=== PATIENT | male | born 1945 | race American Indian/Alaskan Native ===

== ENCOUNTER 2021-04-12 13:02 | Inpatient (IN) | payer MEDICARE ==
--- NOTE | 2021-04-12 13:23 | Emergency Department Report ---
ED Chest Pain HPI - General Chief Complaint: Chest Pain Stated Complaint: CHEST PAIN Time Seen by Provider: 04/12/21 13:05 Source: patient Mode of arrival: Ambulatory Limitations: No Limitations - History of Present Illness Initial Comments: 75-year-old male with a past medical history of type 2 diabetes, hypertension, atrial fibrillation currently on Coumadin, CVA with residual left-sided weakness, and previous admission for upper GI bleed secondary to severe esophagitis presents to the hospital complaints of chest pain since last night. Patient states he has chest pain with lying flat and supine diffuse aching and improved with sitting upright. Patient had one episode of vomiting without persistent nausea. Patient complains of shortness of breath when supine with increased blood phlegm production and cough. He denies fever, loss of sense of taste or smell, or diaphoresis. He is immunized for Covid. Pain currently was 6/10 intensity. Patient received aspirin via EMS prior to arrival. Pt denies hematemesis, hematochezia, and melena. Currently pain free. Room air saturation 99% Severity scale (0 -10): 2 - Related Data Home Medications Medication Instructions Recorded Confirmed Last Taken Doxazosin Mesylate [Cardura] 2 mg PO BID 07/26/13 07/14/18 01/14/17 Previous Rx's Medication Instructions Recorded Last Taken Type lisinopriL [Zestril TAB] 20 mg PO QDAY #30 tablet 10/26/13 01/14/17 Rx Famotidine [Pepcid] 20 mg PO BID #60 tablet 09/22/15 01/14/17 Rx Insulin NPH, Human [NovoLIN N] 12 unit SUB-Q BIDDIAB #30 units 01/08/17 01/14/17 Rx Warfarin [Coumadin] 7.5 mg PO DAILY@1700 #30 tablet 01/08/17 01/14/17 Rx bisacodyL [Dulcolax suppos] 10 mg [place] QDAY PRN #30 supp.rect 01/08/17 Unknown Rx AtorvaSTATin [Lipitor] 40 mg PO QHS #30 tablet 01/18/17 Unknown Rx carvediloL [Coreg] 3.125 mg PO BID #60 tablet 01/18/17 Unknown Rx Clopidogrel [Plavix] 75 mg PO QDAY #30 tablet 07/17/18 Unknown Rx HYDROcodone/APAP 5-325 [[place] 1 each PO BID PRN #10 tablet 07/17/18 Unknown Rx 5-325 mg TAB] levoFLOXacin [Levaquin TAB] 500 mg PO QDAY #3 tablet 07/17/18 Unknown Rx Allergies Allergy/AdvReac Type Severity Reaction Status Date / Time No Known Allergies Allergy Verified 07/26/13 23:31 Heart Score - HEART Score History: Slightly suspicious EKG: Non-specific Age: > 65 Risk factors: > 3 risk factors or hx of atherosclerotic disease Troponin: < normal limit HEART Score: 5 - EKG Read Time Time EKG Completed: 13:05 EKG Read Time: 13:05 (no stemi) ED Review of Systems ROS: Stated complaint: CHEST PAIN Other details as noted in HPI Comment: All other systems reviewed and negative ED Past Medical Hx - Past Medical History Hx Hypertension: Yes Hx CVA: Yes (residual left-sided weakness, 2006) Hx Diabetes: Yes Hx Arthritis: Yes (GOUT) Hx HIV: No Additional medical history: AFIB - Surgical History Hx Pacemaker: Yes Hx Internal Defibrillator: Yes Additional Surgical History: pacemaker - Social History Smoking Status: Never Smoker Substance Use Type: None - Medications Home Medications: Home Medications Medication Instructions Recorded Confirmed Last Taken Type Doxazosin Mesylate [Cardura] 2 mg PO BID 07/26/13 07/14/18 01/14/17 History lisinopriL [Zestril TAB] 20 mg PO QDAY #30 tablet 10/26/13 07/14/18 01/14/17 Rx Famotidine [Pepcid] 20 mg PO BID #60 tablet 09/22/15 07/14/18 01/14/17 Rx Insulin NPH, Human [NovoLIN N] 12 unit SUB-Q BIDDIAB #30 units 01/08/17 07/14/18 01/14/17 Rx Warfarin [Coumadin] 7.5 mg PO DAILY@1700 #30 tablet 01/08/17 07/14/18 01/14/17 Rx bisacodyL [Dulcolax suppos] 10 mg [place] QDAY PRN #30 supp.rect 01/08/17 07/14/18 Unknown Rx AtorvaSTATin [Lipitor] 40 mg PO QHS #30 tablet 01/18/17 07/14/18 Unknown Rx carvediloL [Coreg] 3.125 mg PO BID #60 tablet 01/18/17 07/14/18 Unknown Rx Clopidogrel [Plavix] 75 mg PO QDAY #30 tablet 07/17/18 07/14/18 Unknown Rx HYDROcodone/APAP 5-325 [[place] 1 each PO BID PRN #10 tablet 07/17/18 Unknown Rx 5-325 mg TAB] levoFLOXacin [Levaquin TAB] 500 mg PO QDAY #3 tablet 07/17/18 Unknown Rx ED Physical Exam - General Limitations: No Limitations - Other Other exam information: General: No acute distress Head: Atraumatic Eyes: normal appearance ENT: Moist mucous membranes Neck: Normal appearance, no midline tenderness Chest: Clear to auscultation bilaterally CV: Regular rate and rhythm Abdomen: Soft, normal bowel sounds, nontender, nondistended, no rebound or guarding Rectal: Guaiac positive light brown stool without gross blood Back: Normal inspection Extremity: Normal inspection, full range of motion Neuro: Alert O x 3, left-sided facial droop, left-sided weakness compared to right. Speech clear Psych: Appropriate behavior Skin: No rash ED Course Vital Signs 04/12/21 04/12/21 04/12/21 13:02 13:48 13:56 Temperature 98 F 98.8 F Pulse Rate 89 78 Respiratory 20 19 Rate Blood Pressure 146/87 175/85 [Right] O2 Sat by Pulse 98 99 98 Oximetry 04/12/21 04/12/21 04/12/21 14:05 14:08 14:15 Temperature Pulse Rate 80 58 L 64 Respiratory 21 20 22 Rate Blood Pressure 175/80 [Right] O2 Sat by Pulse 100 98 100 Oximetry 04/12/21 14:31 Temperature Pulse Rate 61 Respiratory 21 Rate Blood Pressure [Right] O2 Sat by Pulse 100 Oximetry - Reevaluation(s) Reevaluation #1: 04/12/21 15:29 pt is currently pain free. - Consultations Consultation #1: 04/12/21 15:[address] Saida pabon. States has not been seen in the offi ce since 2017. Will consult MANNY score - Manny Score Age > 65: (1) Yes Aspirin use within the Past 7 Days: (0) No 3 or more CAD Risk Factors: (1) Yes 2 or more Angina events in past 24 hrs: (0) No Known CAD with more than 50% Stenosis: (0) No Elevated Cardiac Markers: (0) No ST Deviation Greater than 0.5mm: (0) No MANNY Score: 2 ED Medical Decision Making - Lab Data Result diagrams: 04/12/21 13:58 04/12/21 13:58 Lab Results 04/12/21 04/12/21 04/12/21 Range/Units 13:58 13:58 13:58 WBC 6.8 (4.5-11.0) K/mm3 RBC 3.68 (3.65-5.03) M/mm3 Hgb 7.7 L (11.8-15.2) gm/dl Hct 24.9 L (35.5-45.6) % MCV 68 L (84-94) fl MCH 21 L (28-32) pg MCHC 31 L (32-34) % RDW 21.2 H (13.2-15.2) % Plt Count 286 (140-440) K/mm3 Lymph % (Auto) 6.8 L (13.4-35.0) % [place] % (Auto) 7.2 (0.0-7.3) % Eos % (Auto) 0.4 (0.0-4.3) % Baso % (Auto) 2.0 H (0.0-1.8) % Lymph # (Auto) 0.5 L (1.2-5.4) K/mm3 [place] # (Auto) 0.5 (0.0-0.8) K/mm3 Eos # (Auto) 0.0 (0.0-0.4) K/mm3 Baso # (Auto) 0.1 (0.0-0.1) K/mm3 Seg Neutrophils % 83.6 H (40.0-70.0) % Seg Neutrophils # 5.7 (1.8-7.7) K/mm3 PT 37.2 H (12.2-14.9) Sec. INR 3.74 H (0.87-1.13) APTT 39.6 H (24.2-36.6) Sec. Sodium 137 (137-145) mmol/L Potassium 4.5 (3.6-5.0) mmol/L Chloride 105.8 (98-107) mmol/L Carbon Dioxide 19 L (22-30) mmol/L Anion Gap 17 mmol/L BUN 25 H (9-20) mg/dL Creatinine 1.0 (0.8-1.3) mg/dL Estimated GFR > 60 ml/min BUN/Creatinine Ratio 25 % Glucose 172 H (75-100) mg/dL Calcium 8.4 (8.4-10.2) mg/dL Total Bilirubin < 0.20 (0.1-1.2) mg/dL AST 10 (5-40) units/L ALT 6 L (7-56) units/L Alkaline Phosphatase 65 (35-129) units/L Troponin T < 0.010 (0.00-0.029) ng/mL Total Protein 6.7 (6.3-8.2) g/dL Albumin 3.3 L (3.9-5) g/dL Albumin/Globulin Ratio 1.0 % Lipase 31 (13-60) units/L - EKG Data -: EKG Interpreted by Me (Atrial fibrillation) EKG shows normal: ST-T waves (Inferior lateral T wave inversions) Rate: normal (65) - EKG Data When compared to previous EKG there are: changes noted (previous ekg were paced. ) 04/12/21 15:34 Patient has a demand pacemaker with underlying rhythm of atrial fibrillation. Today's EKG shows atrial fibrillation with inferior lateral T wave inversions which is similar to July 26, 2013. Other EKGs on record show a ventricular paced rhythm. Therefore, there were no acute changes - Radiology Data Radiology results: report reviewed CHEST 1 VIEW INDICATION / CLINICAL INFORMATION: chest pain. COMPARISON: 07/12/2018 FINDINGS: SUPPORT DEVICES: Single lead pacemaker is stable in position. HEART / MEDIASTINUM: No significant abnormality. LUNGS / PLEURA: No significant pulmonary or pleural abnormality. No pneumothorax. ADDITIONAL FINDINGS: No significant additional findings. IMPRESSION: 1. No acute findings. No interval change - Medical Decision Making 75-year-old male with several cardiac risk factors presents to the hospital complaining of chest pain. Chest pain appears to be positional without significant associated symptoms. No acute EKG changes. Initial troponin negative. Chest pain-free in the ED. Supratherapeutic INR noted. Microcytic anemia noted with guaiac positive brown nonbloody stools. Patient denies vomiting blood with one episode of emesis overnight. Case discussed with compliance review officer Dr. Cintron and consult ordered. Patient to be admitted to hospital service for further treatment. Critical Care Time: No Critical care attestation.: If time is entered above; I have spent that time in minutes in the direct care of this critically ill patient, excluding procedure time. ED Disposition Clinical Impression: Chest pain, Warfarin anticoagulation, Atrial fibrillation and flutter, Guaiac positive stools, Microcytic anemia, History of CVA with residual deficit Disposition: ADMITTED INPATIENT Is pt being admited?: Yes Condition: Stable Time of Disposition: 15:39
[2021-04-12 14:12] LABS: Basophils # (Auto) 0.1 K/mm3 (0.0-0.1); Eosinophils % (Auto) 0.4 % (0.0-4.3); Hematocrit 24.9 % (35.5-45.6); Hemoglobin 7.7 gm/dl (11.8-15.2); Lymphocytes # (Auto) 0.5 K/mm3 (1.2-5.4); Lymphocytes % (Auto) 6.8 % (13.4-35.0); Mean Corpuscular HGB Conc 31 % (32-34); Monocytes # (Auto) 0.5 K/mm3 (0.0-0.8); Monocytes % (Auto) 7.2 % (0.0-7.3); Platelet Count 286 K/mm3 (140-440); Red Blood Count 3.68 M/mm3 (3.65-5.03)
[2021-04-12 14:13] LABS: Mean Corpuscular Volume 68 fl (84-94); Red Cell Distribution Width 21.2 % (13.2-15.2)
[2021-04-12 14:21] LABS: INR 3.74 (0.87-1.13)
[2021-04-12 14:22] LABS: Partial Thromboplastin Time 39.6 Sec. (24.2-36.6)
--- NOTE | 2021-04-12 14:22 | XRay Report ---
CHEST 1 VIEW INDICATION / CLINICAL INFORMATION: chest pain. COMPARISON: 07/12/2018 FINDINGS: SUPPORT DEVICES: Single lead pacemaker is stable in position. HEART / MEDIASTINUM: No significant abnormality. LUNGS / PLEURA: No significant pulmonary or pleural abnormality. No pneumothorax. ADDITIONAL FINDINGS: No significant additional findings. IMPRESSION: 1. No acute findings. No interval change. Signer Name: Muna Carpenter MD Signed: 04/12/2021 2:18 PM Workstation Name: [id number]
[2021-04-12 15:21] LABS: Alanine Aminotransferase 6 units/L (7-56); Albumin 3.3 g/dL (3.9-5); BUN/Creatinine Ratio 25; Blood Urea Nitrogen 25 mg/dL (9-20); Calcium 8.4 mg/dL (8.4-10.2); Hemolysis Index 1
--- NOTE | 2021-04-12 23:43 | History and Physical Report ---
History of Present Illness Date of examination: 04/12/21 Date of admission: 04/12/21 15:43 Chief complaint: Chest pain since a.m. History of present illness: 75-year-old male with a past medical history of type 2 diabetes, hypertension, atrial fibrillation currently on Coumadin, CVA with residual left-sided weakness, and previous admission for upper GI bleed secondary to severe esophagitis presents to the hospital complaints of chest pain since last night. Patient states he has chest pain with lying flat and supine diffuse aching and improved with sitting upright. Patient had one episode of vomiting without persistent nausea. Patient complains of shortness of breath when supine with increased blood phlegm production and cough. He denies fever, loss of sense of taste or smell, or diaphoresis. He is immunized for Covid. Pain currently was 6/10 intensity. Patient received aspirin via EMS prior to arrival. Pt denies hematemesis, hematochezia, and melena. Currently pain free. Heart Score - HEART Score History: Slightly suspicious EKG: Non-specific Age: > 65 Risk factors: > 3 risk factors or hx of atherosclerotic disease Troponin: < normal limit HEART Score: 5 - EKG Read Time Time EKG Completed: 13:05 EKG Read Time: 13:05 (no stemi) - Past Medical History --Hypertension: Yes --CVA: Yes (residual left-sided weakness, 2006) --Diabetes: Yes --Arthritis: Yes (GOUT) --Additional medical history: AFIB - Surgical History --Pacemaker: Yes --Internal Defibrillator: Yes --Additional Surgical History: pacemaker - Social History Smoking Status: Never Smoker Substance Use Type: None - Medications Home Medications: Home Medications Medication Instructions Recorded Confirmed Last Taken Type Doxazosin Mesylate [Cardura] 2 mg PO BID 07/26/13 07/14/18 01/14/17 History lisinopriL [Zestril TAB] 20 mg PO QDAY #30 tablet 10/26/13 07/14/18 01/14/17 Rx Famotidine [Pepcid] 20 mg PO BID #60 tablet 09/22/15 07/14/18 01/14/17 Rx Insulin NPH, Human [NovoLIN N] 12 unit SUB-Q BIDDIAB #30 units 01/08/17 07/14/18 01/14/17 Rx Warfarin [Coumadin] 7.5 mg PO DAILY@1700 #30 tablet 01/08/17 07/14/18 01/14/17 Rx bisacodyL [Dulcolax suppos] 10 mg [place] QDAY PRN #30 supp.rect 01/08/17 07/14/18 Unknown Rx AtorvaSTATin [Lipitor] 40 mg PO QHS #30 tablet 01/18/17 07/14/18 Unknown Rx carvediloL [Coreg] 3.125 mg PO BID #60 tablet 01/18/17 07/14/18 Unknown Rx Clopidogrel [Plavix] 75 mg PO QDAY #30 tablet 07/17/18 07/14/18 Unknown Rx HYDROcodone/APAP 5-325 [[place] 1 each PO BID PRN #10 tablet 07/17/18 Unknown Rx 5-325 mg TAB] levoFLOXacin [Levaquin TAB] 500 mg PO QDAY #3 tablet 07/17/18 Unknown Rx Review of Systems ROS: Stated complaint: CHEST PAIN Other details as noted in HPI Comment: All other systems reviewed and negative Medications and Allergies Allergies Allergy/AdvReac Type Severity Reaction Status Date / Time No Known Allergies Allergy Verified 07/26/13 23:31 Home Medications Medication Instructions Recorded Confirmed Last Taken Type Doxazosin Mesylate [Cardura] 2 mg PO BID 07/26/13 07/14/18 01/14/17 History lisinopriL [Zestril TAB] 20 mg PO QDAY #30 tablet 10/26/13 07/14/18 01/14/17 Rx Famotidine [Pepcid] 20 mg PO BID #60 tablet 09/22/15 07/14/18 01/14/17 Rx Insulin NPH, Human [NovoLIN N] 12 unit SUB-Q BIDDIAB #30 units 01/08/17 07/14/18 01/14/17 Rx Warfarin [Coumadin] 7.5 mg PO DAILY@1700 #30 tablet 01/08/17 07/14/18 01/14/17 Rx bisacodyL [Dulcolax suppos] 10 mg [place] QDAY PRN #30 supp.rect 01/08/17 07/14/18 Unknown Rx AtorvaSTATin [Lipitor] 40 mg PO QHS #30 tablet 01/18/17 07/14/18 Unknown Rx carvediloL [Coreg] 3.125 mg PO BID #60 tablet 01/18/17 07/14/18 Unknown Rx Clopidogrel [Plavix] 75 mg PO QDAY #30 tablet 07/17/18 07/14/18 Unknown Rx HYDROcodone/APAP 5-325 [[place] 1 each PO BID PRN #10 tablet 07/17/18 Unknown Rx 5-325 mg TAB] levoFLOXacin [Levaquin TAB] 500 mg PO QDAY #3 tablet 07/17/18 Unknown Rx Exam - Constitutional Vitals: Temp Pulse Resp BP Pulse Ox 98.8 F 61 19 176/80 97 04/12/21 13:48 04/12/21 23:31 04/12/21 23:31 04/12/21 23:31 04/12/21 23:31 General appearance: Present: no acute distress, well-nourished - EENT Eyes: Present: PERRL ENT: hearing intact, clear oral mucosa - Neck Neck: Present: supple, normal ROM - Respiratory Respiratory effort: normal Respiratory: bilateral: CTA - Cardiovascular Heart rate: 78 Rhythm: irregularly irregular Heart Sounds: Present: S1 & S2. Absent: rub, click - Extremities Extremities: pulses symmetrical, No edema Peripheral Pulses: within normal limits - Abdominal General gastrointestinal: Present: soft, non-tender, non-distended, normal bowel sounds Male genitourinary: Present: normal - Rectal Rectal Exam: stool brown (OB positive) - Integumentary Integumentary: Present: clear, warm, dry - Musculoskeletal Musculoskeletal: gait normal, strength equal bilaterally - Psychiatric Psychiatric: appropriate mood/affect, intact judgment & insight - Neurologic Neurologic: CNII-XII intact, moves all extremities - Allied Health Allied health notes reviewed: nursing, case management HEART Score - HEART Score History: Moderately suspicious EKG: Non-specific Age: > 65 Risk factors: > 3 risk factors or hx of atherosclerotic disease Troponin: Troponin T < 0.010 ng/mL (0.00-0.029) 04/12/21 19:31 Troponin: < normal limit HEART Score: 6 - Critical Actions Critical Actions: 4-6 pts:12-16.6% risk of adverse cardiac event. Should be admitted Results - Labs CBC & Chem 7: 04/13/21 04:58 04/13/21 04:58 Labs: Laboratory Last Values WBC 6.8 K/mm3 (4.5-11.0) 04/12/21 13:58 RBC 3.68 M/mm3 (3.65-5.03) 04/12/21 13:58 Hgb 7.7 gm/dl (11.8-15.2) L 04/12/21 13:58 Hct 24.9 % (35.5-45.6) L 04/12/21 13:58 MCV 68 fl (84-94) L 04/12/21 13:58 MCH 21 pg (28-32) L 04/12/21 13:58 MCHC 31 % (32-34) L 04/12/21 13:58 RDW 21.2 % (13.2-15.2) H 04/12/21 13:58 Plt Count 286 K/mm3 (140-440) 04/12/21 13:58 Lymph % (Auto) 6.8 % (13.4-35.0) L 04/12/21 13:58 [place] % (Auto) 7.2 % (0.0-7.3) 04/12/21 13:58 Eos % (Auto) 0.4 % (0.0-4.3) 04/12/21 13:58 Baso % (Auto) 2.0 % (0.0-1.8) H 04/12/21 13:58 Lymph # (Auto) 0.5 K/mm3 (1.2-5.4) L 04/12/21 13:58 [place] # (Auto) 0.5 K/mm3 (0.0-0.8) 04/12/21 13:58 Eos # (Auto) 0.0 K/mm3 (0.0-0.4) 04/12/21 13:58 Baso # (Auto) 0.1 K/mm3 (0.0-0.1) 04/12/21 13:58 Seg Neutrophils % 83.6 % (40.0-70.0) H 04/12/21 13:58 Seg Neutrophils # 5.7 K/mm3 (1.8-7.7) 04/12/21 13:58 PT 37.2 Sec. (12.2-14.9) H 04/12/21 13:58 INR 3.74 (0.87-1.13) H 04/12/21 13:58 APTT 39.6 Sec. (24.2-36.6) H 04/12/21 13:58 Sodium 137 mmol/L (137-145) 04/12/21 13:58 Potassium 4.5 mmol/L (3.6-5.0) 04/12/21 13:58 Chloride 105.8 mmol/L (98-107) 04/12/21 13:58 Carbon Dioxide 19 mmol/L (22-30) L 04/12/21 13:58 Anion Gap 17 mmol/L 04/12/21 13:58 BUN 25 mg/dL (9-20) H 04/12/21 13:58 Creatinine 1.0 mg/dL (0.8-1.3) 04/12/21 13:58 Estimated GFR > 60 ml/min 04/12/21 13:58 BUN/Creatinine Ratio 25 % 04/12/21 13:58 Glucose 172 mg/dL (75-100) H 04/12/21 13:58 Calcium 8.4 mg/dL (8.4-10.2) 04/12/21 13:58 Total Bilirubin < 0.20 mg/dL (0.1-1.2) 04/12/21 13:58 AST 10 units/L (5-40) 04/12/21 13:58 ALT 6 units/L (7-56) L 04/12/21 13:58 Alkaline Phosphatase 65 units/L (35-129) 04/12/21 13:58 Troponin T < 0.010 ng/mL (0.00-0.029) 04/12/21 19:31 Total Protein 6.7 g/dL (6.3-8.2) 04/12/21 13:58 Albumin 3.3 g/dL (3.9-5) L 04/12/21 13:58 Albumin/Globulin Ratio 1.0 % 04/12/21 13:58 Lipase 31 units/L (13-60) 04/12/21 13:58 - Imaging and Cardiology EKG: report reviewed (Sinus rhythm no acute ST-T wave changes) Assessment and Plan Advance Directives: Yes Plan of care discussed with patient/family: Yes - Patient Problems (1) Acute coronary syndrome Current Visit: Yes Status: Acute Plan to address problem: Chest pain work-up Lexiscan in the morning (2) A-fib Current Visit: Yes Status: Chronic Qualifiers: Atrial fibrillation type: persistent (not longstanding) Qualified Code(s): I48.19 - Other persistent atrial fibrillation; I48.1 - Persistent atrial fibrillation Plan to address problem: On Coumadin which was stopped because of the INR being more than 3 Also guaiac positive stools Patient on clear liquids (3) Guaiac positive stools Current Visit: Yes Status: Acute Plan to address problem: GI consult (4) History of CVA with residual deficit Current Visit: Yes Status: Chronic Plan to address problem: Supportive care (5) Coagulopathy Current Visit: Yes Status: Acute Plan to address problem: Coumadin and Plavix stopped GI consult for possible EGD/colonoscopy (6) Anemia Current Visit: Yes Status: Chronic Qualifiers: Anemia type: unspecified type Qualified Code(s): D64.9 - Anemia, unspecified Plan to address problem: Transfuse as necessary Possible slow blood loss secondary to coagulopathy (7) Cardiac pacemaker in situ Current Visit: No Status: Chronic Plan to address problem: Pacemaker functioning well (8) HTN (hypertension) Current Visit: No Status: Chronic Plan to address problem: Continue antihypertensives and adjust medications (9) DVT prophylaxis Current Visit: Yes Status: Acute Plan to address problem: Patient is anticoagulated, no need for heparin Patient on IV Protonix (10) T2DM (type 2 diabetes mellitus) Current Visit: Yes Status: Chronic Qualifiers: Diabetes mellitus terminal worker insulin use: unspecified terminal worker insulin use status Plan to address problem: coverage for now
[2021-04-12] MEDS ORDERED: FAMOTIDINE 20 MG/2 ML INJ IV SCH (23:45)
[2021-04-12] MEDS ORDERED: ONDANSETRON 4 MG/2 ML INJ IV PRN (23:46)
[2021-04-12] MEDS ORDERED: ACETAMINOPHEN 325 MG TAB PO PRN (23:46)
[2021-04-12] MEDS ORDERED: MORPHINE 2 MG/1 ML INJ IV PRN (23:46)
[2021-04-12] MEDS ORDERED: METOCLOPRAMIDE 10 MG/2 ML INJ IV PRN (23:46)
[2021-04-12] MEDS ORDERED: HYDROmorphone 1 MG/1 ML INJ IV PRN (23:46)
[2021-04-13] MEDS: PANTOPRAZOLE 40 MG INJ IV SCH ×2 (00:54→20:24)
[2021-04-13 01:00] LABS: Hematocrit 24.9 % (35.5-45.6); Hemoglobin 7.7 gm/dl (11.8-15.2)
[2021-04-13 06:22] LABS: INR 3.75 (0.87-1.13)
[2021-04-13 06:23] LABS: Partial Thromboplastin Time 43.4 Sec. (24.2-36.6)
[2021-04-13 06:35] LABS: Basophils # (Auto) 0.1 K/mm3 (0.0-0.1); Basophils % (Auto) 0.8 % (0.0-1.8); Eosinophils # (Auto) 0.1 K/mm3 (0.0-0.4); Eosinophils % (Auto) 1.9 % (0.0-4.3); Hematocrit 24.5 % (35.5-45.6); Hemoglobin 7.8 gm/dl (11.8-15.2); Lymphocytes # (Auto) 1.6 K/mm3 (1.2-5.4); Lymphocytes % (Auto) 25.6 % (13.4-35.0); Mean Corpuscular HGB Conc 32 % (32-34); Monocytes # (Auto) 0.6 K/mm3 (0.0-0.8); Monocytes % (Auto) 9.4 % (0.0-7.3); Platelet Count 256 K/mm3 (140-440); Red Blood Count 3.61 M/mm3 (3.65-5.03)
[2021-04-13 06:41] LABS: Mean Corpuscular Volume 68 fl (84-94); Red Cell Distribution Width 21.3 % (13.2-15.2)
[2021-04-13 06:43] LABS: Alanine Aminotransferase 6 units/L (7-56); Albumin 3.1 g/dL (3.9-5); BUN/Creatinine Ratio 19; Blood Urea Nitrogen 19 mg/dL (9-20); Calcium 8.4 mg/dL (8.4-10.2); Hemolysis Index 0
[2021-04-13] MEDS: INSULIN NPH, HUMAN 100 UNIT/1 ML SUB-Q SCH ×2 (08:17→19:02)
--- NOTE | 2021-04-13 08:48 | Electrocardiograph Report ---
[facility] Test Date: 2021-04-12 Test Time: 13:05:40 Pat Name: VIANNEY ATKINSON SR Department: Room: A483 1 Gender: M Studio Director: ED NURSE : 1945 Requested By: ANDREY PARIS Order Number: [id number] Reading MD: Leon Crockett Measurements Intervals [place] Rate: 65 P: [place]: QRS: -6 QRSD: 92 T: 269 QT: 406 QTc: 422 Interpretive Statements Atrial fibrillation baseline artifact repeat ekg Inferior infarct, age indeterminate Abnrm T, probable ischemia, anterolateral lds No previous ECG available for comparison Electronically Signed On 04-13-2021 8:48:24 EDT by Leon Crockett
--- NOTE | 2021-04-13 08:51 | Electrocardiograph Report ---
[facility] Test Date: 2021-04-13 Test Time: 07:15:32 Pat Name: VIANNEY ATKINSON SR Department: Room: A483 1 Gender: M Integration Aide: AMANDA : 1945 Requested By: ANDREY PARIS Order Number: [id number] Reading MD: Leon Crockett Measurements Intervals [place] Rate: 77 P: [place]: QRS: -19 QRSD: 94 T: -89 QT: 434 QTc: 491 Interpretive Statements Atrial fibrillation Probable anterior infarct, age indeterminate Abnormal T, probable ischemia, widespread Lateral wall also involved Compared to ECG 04/12/2021 13:05:40 T-wave abnormality now present Myocardial infarct finding still present Possible ischemia still present Electronically Signed On 04-13-2021 8:51:05 EDT by Leon Crockett
[2021-04-13] MEDS ORDERED: REGADENOSON 0.4 MG/5 ML INJ IV ONE (09:47)
[2021-04-13] MEDS ORDERED: NON-FORMULARY EACH (Doxazosin Mesylate [Cardura] 2 MG Tablet) PO SCH (10:00)
[2021-04-13] MEDS ORDERED: carvediloL 3.125 MG TAB PO SCH (10:00)
[2021-04-13] MEDS ORDERED: FAMOTIDINE 20 MG TAB PO SCH (10:00)
--- NOTE | 2021-04-13 12:07 | Progress Note ---
Assessment and Plan Assessment and plan: -- Acute coronary syndrome Current Visit: Yes Status: Acute Chest pain work-up Patient had stress test Pending report -- A-fib Current Visit: Yes Status: Chronic On Coumadin which was stopped because of the INR being more than 3 Rate controlled, continue current cardiac medications -- Guaiac positive stools Current Visit: Yes Status: Acute GI consult -- History of CVA with residual deficit Current Visit: Yes Status: Chronic Supportive care -- Coagulopathy/supratherapeutic INR Current Visit: Yes Status: Acute Coumadin and Plavix stopped GI consult for possible EGD/colonoscopy --Anemia Current Visit: Yes Status: Chronic Transfuse as necessary Possible slow blood loss secondary to coagulopathy --Cardiac pacemaker in situ Current Visit: No Status: Chronic Pacemaker functioning well --HTN (hypertension) Current Visit: No Status: Chronic Continue antihypertensives and adjust medications -- T2DM (type 2 diabetes mellitus) Current Visit: Yes Status: Chronic Accu-Chek sliding scale coverage ADA diet Insulin as needed --DVT prophylaxis Current Visit: Yes Status: Acute Coagulopathy/ Closely monitor the patient and adjust the management as needed 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 and appreciated Follow stress test report Follow-up GI and cardiology evaluation and recommendations Plan of care reviewed with the patient and her nurse History Interval history: I have seen and examined the patient at the bedside Patient's chart and medications reviewed Patient scheduled for stress test Patient feels better no new complaints Hospitalist Physical - Constitutional Vitals: Temp Pulse Resp BP Pulse Ox 98.0 F 60 18 147/70 100 04/13/21 08:24 04/13/21 08:24 04/13/21 08:24 04/13/21 10:10 04/13/21 08:24 General appearance: Present: no acute distress, well-nourished - EENT Eyes: Present: PERRL, EOM intact - Neck Neck: Present: supple, normal ROM - Respiratory Respiratory effort: normal Respiratory: bilateral: diminished, negative: rales, rhonchi, wheezing - Cardiovascular Rhythm: regular Heart Sounds: Present: S1 & S2 - Extremities Extremities: no ischemia, No edema - Abdominal General gastrointestinal: soft, non-tender, non-distended, normal bowel sounds - Integumentary Integumentary: Present: clear, warm - Psychiatric Psychiatric: appropriate mood/affect, cooperative - Neurologic Neurologic: CNII-XII intact, moves all extremities HEART Score - HEART Score EKG: Non-specific Age: > 65 Risk factors: > 3 risk factors or hx of atherosclerotic disease Troponin: Troponin T < 0.010 ng/mL (0.00-0.029) 04/12/21 19:31 Troponin: < normal limit - Critical Actions Critical Actions: 4-6 pts:12-16.6% risk of adverse cardiac event. Should be admitted Results - Labs CBC & Chem 7: 04/13/21 15:21 04/13/21 04:58 Labs: Laboratory Last Values WBC 6.1 K/mm3 (4.5-11.0) 04/13/21 04:58 RBC 3.61 M/mm3 (3.65-5.03) L 04/13/21 04:58 Hgb 7.8 gm/dl (11.8-15.2) L 04/13/21 04:58 Hct 24.5 % (35.5-45.6) L 04/13/21 04:58 MCV 68 fl (84-94) L 04/13/21 04:58 MCH 22 pg (28-32) L 04/13/21 04:58 MCHC 32 % (32-34) 04/13/21 04:58 RDW 21.3 % (13.2-15.2) H 04/13/21 04:58 Plt Count 256 K/mm3 (140-440) 04/13/21 04:58 Lymph % (Auto) 25.6 % (13.4-35.0) 04/13/21 04:58 [place] % (Auto) 9.4 % (0.0-7.3) H 04/13/21 04:58 Eos % (Auto) 1.9 % (0.0-4.3) 04/13/21 04:58 Baso % (Auto) 0.8 % (0.0-1.8) 04/13/21 04:58 Lymph # (Auto) 1.6 K/mm3 (1.2-5.4) 04/13/21 04:58 [place] # (Auto) 0.6 K/mm3 (0.0-0.8) 04/13/21 04:58 Eos # (Auto) 0.1 K/mm3 (0.0-0.4) 04/13/21 04:58 Baso # (Auto) 0.1 K/mm3 (0.0-0.1) 04/13/21 04:58 Seg Neutrophils % 62.3 % (40.0-70.0) 04/13/21 04:58 Seg Neutrophils # 3.8 K/mm3 (1.8-7.7) 04/13/21 04:58 PT 37.3 Sec. (12.2-14.9) H 04/13/21 04:58 INR 3.75 (0.87-1.13) H 04/13/21 04:58 APTT 43.4 Sec. (24.2-36.6) H 04/13/21 04:58 Sodium 146 mmol/L (137-145) H D 04/13/21 04:58 Potassium 4.3 mmol/L (3.6-5.0) 04/13/21 04:58 Chloride 112.9 mmol/L (98-107) H 04/13/21 04:58 Carbon Dioxide 22 mmol/L (22-30) 04/13/21 04:58 Anion Gap 15 mmol/L 04/13/21 04:58 BUN 19 mg/dL (9-20) 04/13/21 04:58 Creatinine 1.0 mg/dL (0.8-1.3) 04/13/21 04:58 Estimated GFR > 60 ml/min 04/13/21 04:58 BUN/Creatinine Ratio 19 % 04/13/21 04:58 Glucose 116 mg/dL (75-100) H 04/13/21 04:58 Hemoglobin A1c 5.7 % (4-6) 04/13/21 04:58 Calcium 8.4 mg/dL (8.4-10.2) 04/13/21 04:58 Total Bilirubin 0.20 mg/dL (0.1-1.2) 04/13/21 04:58 AST 9 units/L (5-40) 04/13/21 04:58 ALT 6 units/L (7-56) L 04/13/21 04:58 Alkaline Phosphatase 59 units/L (35-129) 04/13/21 04:58 Troponin T < 0.010 ng/mL (0.00-0.029) 04/12/21 19:31 Total Protein 6.3 g/dL (6.3-8.2) 04/13/21 04:58 Albumin 3.1 g/dL (3.9-5) L 04/13/21 04:58 Albumin/Globulin Ratio 1.0 % 04/13/21 04:58 Lipase 31 units/L (13-60) 04/12/21 13:58 Microbiology: Microbiology 04/12/21 15:15 Stool Stool Occult Blood (BELIA) - Final Brenner/IV: Voiding Method Urinal Active Medications - Current Medications Current Medications: Generic Name Dose Route Start Last Admin Trade Name Freq PRN Reason Stop Dose Admin Acetaminophen 650 mg 04/12/21 23:46 Acetaminophen 325 Mg Tab PO Q4H PRN Pain MILD(1-3)/Fever >100.5/RAMIREZ Atorvastatin Calcium 40 mg 04/13/21 22:00 Atorvastatin 40 Mg Tab PO QHS [facility] Carvedilol 3.125 mg 04/13/21 10:00 Carvedilol 3.125 Mg Tab PO BID [facility] Doxazosin Mesylate 2 mg 04/13/21 10:00 Doxazosin 1 Mg Tab PO BID [facility] Hydromorphone HCl 0.5 mg 04/12/21 23:46 Hydromorphone 1 Mg/1 Ml Inj IV Q3H PRN Pain , Severe (7-10) Sodium Chloride 1,000 mls @ 75 mls/hr 04/12/21 23:45 Nacl 0.9% 1000 Ml IV DIRECT [facility] Insulin Human NPH 12 unit 04/13/21 08:00 04/13/21 08:17 Insulin Nph, Human 100 Unit/1 Ml SUB-Q Not Given BIDDIAB [facility] Lisinopril 20 mg 04/13/21 10:00 Lisinopril 20 Mg Tab PO QDAY [facility] Metoclopramide HCl 10 mg 04/12/21 23:46 Metoclopramide 10 Mg/2 Ml Inj IV Q6H PRN Nausea And Vomiting Morphine Sulfate 2 mg 04/12/21 23:46 Morphine 2 Mg/1 Ml Inj IV Q4H PRN Pain, Moderate (4-6) Ondansetron HCl 4 mg 04/12/21 23:46 Ondansetron 4 Mg/2 Ml Inj IV Q8H PRN Nausea And Vomiting Pantoprazole Sodium 40 mg 04/12/21 23:45 04/13/21 00:54 Pantoprazole 40 Mg Inj IV 40 mg BID LAW Administration Sodium Chloride 10 ml 04/12/21 23:45 04/13/21 00:55 Sodium Chloride 0.9% 10 Ml Flush Syringe IV 10 ml BID LAW Administration Sodium Chloride 10 ml 04/12/21 23:46 Sodium Chloride 0.9% 10 Ml Flush Syringe IV PRN PRN LINE FLUSH
--- NOTE | 2021-04-13 13:00 | Nuclear Medicine Report ---
APPROVED REPORT Exam: Nuclear Stress Test Indication: Chest pain [facility] Ht: 5 ft 5 in Wt: 172 lbs BSA: 1.86 m2 HR: 64 bpmBP: 150/80 mmHgBMI: 28.61 Rhythm: Sinus Bradycardia Stress Test Details Stress Test: Pharmacologic stress testing performed using 0.4 mg of regadenoson per 5 mL given IV over 10 seconds. Reason for pharmacologic stress test: physical limitation. HR Resting HR: 64 bpm Max HR Achieved: 107 bpm Max Heart Rate (APMHR): 146 bpm Target HR (85% APMHR): 124 bpm % of APMHR: 73 Recovery HR: 96 bpm BP Resting BP: 150/86 mmHg Max BP: 160/87 mmHg ECG Resting ECG: Sinus Bradycardia Stress ECG: Sinus Rhythm ST Change: None Arrhythmia: None Recovery ECG: Sinus Rhythm Recovery ST Change: None Recovery Arrhythmia: None Clinical Reason for Termination: Completed protocol Stress Symptoms: None Stress ECG Conclusion No chest pain, no ST changes of ischemia with pharmacologic stress, myocardial perfusion images are pending for final test interpretation. NM EXAM: Myocardial Perfusion REST/STRESS Imaging Protocol: Rest Tc-99m/Stress Tc-99m 1 day Resting Data Rest SPECT myocardial perfusion imaging was performed in supine position 45 minutes following the intravenous injection of 10 mCi of Tc-99m Myoview. Time of rest injection: 0820 Pharmacologic Stress Pharmacologic stress test was performed by injecting Regadenoson 0.4 mg IV push followed by the intravenous injection of 28 mCi of Tc-99m Myoview. Time of stress injection: 1008 Gated Stress SPECT was performed 30 minutes after stress injection. The images were gated to evaluate regional wall motion and calculate left ventricular ejection fraction. Study Quality Study: excellent Lung Uptake: Normal Study Data TID = 0.99. Perfusion Wall Motion There is a small area of hypokinesis in the apical segment of the inferior wall which is seen on the stress images as well as the resting images. Nuclear Conclusion ECG Findings: negative for ischemia Clinical Findings: negative for ischemia Nuclear Findings: equivocal Left Ventricular Function: normal Risk Study: low Evidence of failure prior infarct in the apical segment of the inferior wall, with minimal to no significant reversibility on the resting study. Left ventricular systolic function is well-preserved, with ejection fraction calculated at 62%. Clinical correlation is recommended. Conclusion No chest pain, no ST changes of ischemia with pharmacologic stress, myocardial perfusion images are pending for final test interpretation.
[2021-04-13] MEDS: LISINOPRIL 20 MG TAB PO SCH (13:20)
[2021-04-13] MEDS: DOXAZOSIN 1 MG TAB PO SCH ×3 (13:20→22:25)
--- NOTE | 2021-04-13 13:29 | Consultation ---
History of Present Illness Consult date: 04/13/21 Consult reason: chest pain History of present illness: The patient is a 75-year-old man with multiple comorbidities, admitted with a typical chest pain. He has a history of paroxysmal atrial fibrillation, sick sinus syndrome with single-chamber cardiac pacemaker, prior CVA with a residual left hemiparesis. He is on chronic warfarin therapy, managed by his primary care physician. 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 There is no documented history of coronary artery disease or previous myocardial infarction. Serial echocardiograms, most recently in 2017 document normal left ventricular systolic ejection fraction of 55%. His current chest pain is atypical, nonexertional, poorly characterized with no associated features. He was evaluated in the emergency room and referred for admission. His ECG is a normal sinus rhythm, left ventricle hypertrophy with marked repolarization abnormalities of LVH. Chest x-ray reveals normal-sized cardiac silhouette and clear lungs. Single chamber pacemaker is in situ. Today, he underwent a Lexiscan thallium stress test, which shows a small to med ium sized wedge-shaped, fixed defect in the inferoapical wall. This defect was mostly fixed with minimal to no significant reversibility. Left ventricular systolic ejection fraction was normal on gated SPECT study. Past History Past Medical History: atrial fib, hypertension, stroke Medications and Allergies Allergies Allergy/AdvReac Type Severity Reaction Status Date / Time No Known Allergies Allergy Verified 07/26/13 23:31 Home Medications Medication Instructions Recorded Confirmed Last Taken Type Doxazosin Mesylate [Cardura] 2 mg PO BID 07/26/13 07/14/18 01/14/17 History lisinopriL [Zestril TAB] 20 mg PO QDAY #30 tablet 10/26/13 07/14/18 01/14/17 Rx Famotidine [Pepcid] 20 mg PO BID #60 tablet 09/22/15 07/14/18 01/14/17 Rx Insulin NPH, Human [NovoLIN N] 12 unit SUB-Q BIDDIAB #30 units 01/08/17 07/14/18 01/14/17 Rx Warfarin [Coumadin] 7.5 mg PO DAILY@1700 #30 tablet 01/08/17 07/14/18 01/14/17 Rx bisacodyL [Dulcolax suppos] 10 mg [place] QDAY PRN #30 supp.rect 01/08/17 07/14/18 Unknown Rx AtorvaSTATin [Lipitor] 40 mg PO QHS #30 tablet 01/18/17 07/14/18 Unknown Rx carvediloL [Coreg] 3.125 mg PO BID #60 tablet 01/18/17 07/14/18 Unknown Rx Clopidogrel [Plavix] 75 mg PO QDAY #30 tablet 07/17/18 07/14/18 Unknown Rx HYDROcodone/APAP 5-325 [[place] 1 each PO BID PRN #10 tablet 07/17/18 Unknown Rx 5-325 mg TAB] levoFLOXacin [Levaquin TAB] 500 mg PO QDAY #3 tablet 07/17/18 Unknown Rx Active Meds: Active Medications Acetaminophen (Acetaminophen 325 Mg Tab) 650 mg PO Q4H PRN PRN Reason: Pain MILD(1-3)/Fever >100.5/RAMIREZ Atorvastatin Calcium (Atorvastatin 40 Mg Tab) 40 mg PO QHS [facility] Carvedilol (Carvedilol 3.125 Mg Tab) 3.125 mg PO BID [facility] Doxazosin Mesylate (Doxazosin 1 Mg Tab) 2 mg PO BID [facility] Hydromorphone HCl (Hydromorphone 1 Mg/1 Ml Inj) 0.5 mg IV Q3H PRN PRN Reason: Pain , Severe (7-10) Sodium Chloride (Nacl 0.9% 1000 Ml) 1,000 mls @ 75 mls/hr IV DIRECT [facility] Insulin Human NPH (Insulin Nph, Human 100 Unit/1 Ml) 12 unit SUB-Q BIDDIAB [facility] Last Admin: 04/13/21 08:17 Dose: Not Given Documented by: Lisinopril (Lisinopril 20 Mg Tab) 20 mg PO QDAY [facility] Metoclopramide HCl (Metoclopramide 10 Mg/2 Ml Inj) 10 mg IV Q6H PRN PRN Reason: Nausea And Vomiting Morphine Sulfate (Morphine 2 Mg/1 Ml Inj) 2 mg IV Q4H PRN PRN Reason: Pain, Moderate (4-6) Ondansetron HCl (Ondansetron 4 Mg/2 Ml Inj) 4 mg IV Q8H PRN PRN Reason: Nausea And Vomiting Pantoprazole Sodium (Pantoprazole 40 Mg Inj) 40 mg IV BID [facility] Last Admin: 04/13/21 00:54 Dose: 40 mg Documented by: Sodium Chloride (Sodium Chloride 0.9% 10 Ml Flush Syringe) 10 ml IV BID LAW Last Admin: 04/13/21 00:55 Dose: 10 ml Documented by: Sodium Chloride (Sodium Chloride 0.9% 10 Ml Flush Syringe) 10 ml IV PRN PRN PRN Reason: LINE FLUSH Review of Systems Cardiovascular: chest pain, no orthopnea, no palpitations, no rapid/irregular heart beat, no edema, no syncope, no lightheadedness, no shortness of breath Physical Examination Vital Signs Temp Pulse Resp BP Pulse Ox 98.9 F 89 16 146/87 99 04/12/21 13:02 04/12/21 13:02 04/12/21 13:02 04/12/21 13:02 04/12/21 13:02 General appearance: no acute distress HEENT: Positive: PERRL Neck: Positive: neck supple Cardiac: Positive: Reg Rate and Rhythm Lungs: Positive: Decreased Breath Sounds Neuro: Positive: Weakness (Chronic left hemiparesis) Abdomen: Positive: Soft Male genitourinary: Positive: deferred Skin: Positive: Clear Extremities: Absent: edema Results 04/13/21 04:58 04/13/21 04:58 Cardiac Enzymes 04/12/21 04/13/21 Range/Units 13:58 04:58 AST 10 9 (5-40) units/L Coagulation 04/12/21 04/13/21 Range/Units 13:58 04:58 PT 37.2 H 37.3 H (12.2-14.9) Sec. INR 3.74 H 3.75 H (0.87-1.13) APTT 39.6 H 43.4 H (24.2-36.6) Sec. CBC 04/12/21 04/13/21 04/13/21 Range/Units 13:58 00:36 04:58 WBC 6.8 6.1 (4.5-11.0) K/mm3 RBC 3.68 3.61 L (3.65-5.03) M/mm3 Hgb 7.7 L 7.7 L 7.8 L (11.8-15.2) gm/dl Hct 24.9 L 24.9 L 24.5 L (35.5-45.6) % Plt Count 286 256 (140-440) K/mm3 Lymph # (Auto) 0.5 L 1.6 (1.2-5.4) K/mm3 [place] # (Auto) 0.5 0.6 (0.0-0.8) K/mm3 Eos # (Auto) 0.0 0.1 (0.0-0.4) K/mm3 Baso # (Auto) 0.1 0.1 (0.0-0.1) K/mm3 Comprehensive Metabolic Panel 04/12/21 04/13/21 Range/Units 13:58 04:58 Sodium 137 146 H D (137-145) mmol/L Potassium 4.5 4.3 (3.6-5.0) mmol/L Chloride 105.8 112.9 H (98-107) mmol/L Carbon Dioxide 19 L 22 (22-30) mmol/L BUN 25 H 19 (9-20) mg/dL Creatinine 1.0 1.0 (0.8-1.3) mg/dL Glucose 172 H 116 H (75-100) mg/dL Calcium 8.4 8.4 (8.4-10.2) mg/dL AST 10 9 (5-40) units/L ALT 6 L 6 L (7-56) units/L Alkaline Phosphatase 65 59 (35-129) units/L Total Protein 6.7 6.3 (6.3-8.2) g/dL Albumin 3.3 L 3.1 L (3.9-5) g/dL EKG interpretations - Telemetry EKG Rhythm: Sinus Rhythm Assessment and Plan - Patient Problems (1) Chest pain Current Visit: Yes Status: Acute Plan to address problem: Patient presented with atypical chest pain, ECG shows left ventricle hypertrophy with repolarization abnormalities of LVH, but thallium stress test is abnormal with evidence of prior infarct in the inferior apical wall. There is minimal degree of reversibility. We will optimize guideline directed medical therapy for coronary artery disease. Further evaluation including invasive cardiac evaluation will depend on clinical course.
--- NOTE | 2021-04-13 14:40 | Gastroenterology Consultation ---
History of Present Illness - Reason for Consult Consult date: 04/13/21 GI Bleed Requesting physician: YAZMIN TOM - History of Present Illness The patient came to the hospital for chest pain/elevated BP (poor historian) but was noted to have acute on chronic anemia. Current hgb is 7.9, but his baseline is about 11. He is on coumadin, plavix, and ?ASA (patient not sure). He has a hx of AF and CVA, but no CAD or CHF. He has a pacemaker present. He is hemoccult positive, but has had no melena or hematochezia. He had an EGD here 4 years ago that showed LA Grade D esophagitis, but I could find no record of a colonoscopy here or at [facility] (patient says it was negative 1 year ago at [place]). He denies N/V/abdominal pain/rectal bleeding. Past History Past Medical History: atrial fib, diabetes, hypertension, hyperlipidemia, stroke Past Surgical History: Other (Pacemaker) Social history: denies: smoking, alcohol abuse Family history: no significant family history Medications and Allergies Allergies Allergy/AdvReac Type Severity Reaction Status Date / Time No Known Allergies Allergy Verified 07/26/13 23:31 Home Medications Medication Instructions Recorded Confirmed Last Taken Type Doxazosin Mesylate [Cardura] 2 mg PO BID 07/26/13 07/14/18 01/14/17 History lisinopriL [Zestril TAB] 20 mg PO QDAY #30 tablet 10/26/13 07/14/18 01/14/17 Rx Famotidine [Pepcid] 20 mg PO BID #60 tablet 09/22/15 07/14/18 01/14/17 Rx Insulin NPH, Human [NovoLIN N] 12 unit SUB-Q BIDDIAB #30 units 01/08/17 07/14/18 01/14/17 Rx Warfarin [Coumadin] 7.5 mg PO DAILY@1700 #30 tablet 01/08/17 07/14/18 01/14/17 Rx bisacodyL [Dulcolax suppos] 10 mg [place] QDAY PRN #30 supp.rect 01/08/17 07/14/18 Unknown Rx AtorvaSTATin [Lipitor] 40 mg PO QHS #30 tablet 01/18/17 07/14/18 Unknown Rx carvediloL [Coreg] 3.125 mg PO BID #60 tablet 01/18/17 07/14/18 Unknown Rx Clopidogrel [Plavix] 75 mg PO QDAY #30 tablet 07/17/18 07/14/18 Unknown Rx HYDROcodone/APAP 5-325 [[place] 1 each PO BID PRN #10 tablet 07/17/18 Unknown Rx 5-325 mg TAB] levoFLOXacin [Levaquin TAB] 500 mg PO QDAY #3 tablet 07/17/18 Unknown Rx Active Meds: Active Medications Acetaminophen (Acetaminophen 325 Mg Tab) 650 mg PO Q4H PRN PRN Reason: Pain MILD(1-3)/Fever >100.5/RAMIREZ Atorvastatin Calcium (Atorvastatin 40 Mg Tab) 40 mg PO QHS [facility] Doxazosin Mesylate (Doxazosin 1 Mg Tab) 2 mg PO BID [facility] Hydromorphone HCl (Hydromorphone 1 Mg/1 Ml Inj) 0.5 mg IV Q3H PRN PRN Reason: Pain , Severe (7-10) Sodium Chloride (Nacl 0.9% 1000 Ml) 1,000 mls @ 75 mls/hr IV DIRECT [facility] Insulin Human NPH (Insulin Nph, Human 100 Unit/1 Ml) 12 unit SUB-Q BIDDIAB [facility] Last Admin: 04/13/21 08:17 Dose: Not Given Documented by: Isosorbide Mononitrate (Isosorbide Mononitrate Er 30 Mg Tab) 30 mg PO QDAY [facility] Lisinopril (Lisinopril 20 Mg Tab) 20 mg PO QDAY [facility] Metoclopramide HCl (Metoclopramide 10 Mg/2 Ml Inj) 10 mg IV Q6H PRN PRN Reason: Nausea And Vomiting Metoprolol Tartrate (Metoprolol Tartrate 25 Mg Tab) 25 mg PO Q8H [facility] Morphine Sulfate (Morphine 2 Mg/1 Ml Inj) 2 mg IV Q4H PRN PRN Reason: Pain, Moderate (4-6) Multivitamins (Multivitamins ,Therapeutic Tab) 1 each PO QDAY [facility] Ondansetron HCl (Ondansetron 4 Mg/2 Ml Inj) 4 mg IV Q8H PRN PRN Reason: Nausea And Vomiting Pantoprazole Sodium (Pantoprazole 40 Mg Inj) 40 mg IV QDAY [facility] Sodium Chloride (Sodium Chloride 0.9% 10 Ml Flush Syringe) 10 ml IV BID [facility] Last Admin: 04/13/21 00:55 Dose: 10 ml Documented by: Sodium Chloride (Sodium Chloride 0.9% 10 Ml Flush Syringe) 10 ml IV PRN PRN PRN Reason: LINE FLUSH I HAVE REVIEWED / RECONCILED MEDICATIONS Review of Systems - Review of Systems All systems: negative (as noted in the HPI (but should be noted poor historian)) Exam - Constitutional Vital Signs: Temp Pulse Resp BP Pulse Ox 97.3 F L 63 18 164/48 99 04/13/21 12:04 04/13/21 12:04 04/13/21 12:04 04/13/21 12:04 04/13/21 12:04 General appearance: no acute distress - EENT Eyes: PERRL, EOM intact ENT: hearing intact, clear oral mucosa - Neck Neck: supple, normal ROM - Respiratory Respiratory effort: normal Respiratory: bilateral: CTA - Cardiovascular Rhythm: other (Pacemaker/paced rhythm) Heart Sounds: Present: S1 & S2 Extremities: no ischemia, No edema - Gastrointestinal General gastrointestinal: Present: soft, non-tender, non-distended - Integumentary Integumentary: Present: clear, warm, dry - Neurologic Neurological: alert and oriented x3, left side weakness - Labs CBC & Chem 7: 04/13/21 04:58 04/13/21 04:58 Lab Results: Laboratory Results - last 24 hr 04/12/21 04/12/21 04/12/21 13:58 15:52 19:31 WBC RBC Hgb Hct MCV MCH MCHC RDW Plt Count Lymph % (Auto) [place] % (Auto) Eos % (Auto) Baso % (Auto) Lymph # (Auto) [place] # (Auto) Eos # (Auto) Baso # (Auto) Seg Neutrophils % Seg Neutrophils # PT INR APTT Sodium 137 Potassium 4.5 Chloride 105.8 Carbon Dioxide 19 L Anion Gap 17 BUN 25 H Creatinine 1.0 Estimated GFR > 60 BUN/Creatinine Ratio 25 Glucose 172 H Hemoglobin A1c Calcium 8.4 Total Bilirubin < 0.20 AST 10 ALT 6 L Alkaline Phosphatase 65 Troponin T < 0.010 < 0.010 < 0.010 Total Protein 6.7 Albumin 3.3 L Albumin/Globulin Ratio 1.0 Lipase 31 04/13/21 04/13/21 04/13/21 00:36 04:58 04:58 WBC 6.1 RBC 3.61 L Hgb 7.7 L 7.8 L Hct 24.9 L 24.5 L MCV 68 L MCH 22 L MCHC 32 RDW 21.3 H Plt Count 256 Lymph % (Auto) 25.6 [place] % (Auto) 9.4 H Eos % (Auto) 1.9 Baso % (Auto) 0.8 Lymph # (Auto) 1.6 [place] # (Auto) 0.6 Eos # (Auto) 0.1 Baso # (Auto) 0.1 Seg Neutrophils % 62.3 Seg Neutrophils # 3.8 PT INR APTT Sodium 146 H D Potassium 4.3 Chloride 112.9 H Carbon Dioxide 22 Anion Gap 15 BUN 19 Creatinine 1.0 Estimated GFR > 60 BUN/Creatinine Ratio 19 Glucose 116 H Hemoglobin A1c Calcium 8.4 Total Bilirubin 0.20 AST 9 ALT 6 L Alkaline Phosphatase 59 Troponin T Total Protein 6.3 Albumin 3.1 L Albumin/Globulin Ratio 1.0 Lipase 04/13/21 04/13/21 04:58 04:58 WBC RBC Hgb Hct MCV MCH MCHC RDW Plt Count Lymph % (Auto) [place] % (Auto) Eos % (Auto) Baso % (Auto) Lymph # (Auto) [place] # (Auto) Eos # (Auto) Baso # (Auto) Seg Neutrophils % Seg Neutrophils # PT 37.3 H INR 3.75 H APTT 43.4 H Sodium Potassium Chloride Carbon Dioxide Anion Gap BUN Creatinine Estimated GFR BUN/Creatinine Ratio Glucose Hemoglobin A1c 5.7 Calcium Total Bilirubin AST ALT Alkaline Phosphatase Troponin T Total Protein Albumin Albumin/Globulin Ratio Lipase Assessment and Plan - Patient Problems (1) Acute blood loss anemia Current Visit: Yes Status: Acute Plan to address problem: - The patient is a somewhat unreliable historian, and also does not appear to be taking Coumadin correctly (INR should be closer to 2.5). - I will start protonix given hx of severe GERD, and stop anticoagulation x 48 hours. - Multivitamin therapy. - Since no gross GI bleeding, OK to give regular diet. - Consider repeat EGD/colon Friday if INR < 2, to clear for further anticoagulation (?if would be safer to be on Eliquis rather than coumadin, and whether he could stop plavix + ASA; will defer to Cards)
[2021-04-13 15:47] LABS: Hematocrit 23.4 % (35.5-45.6); Hemoglobin 7.3 gm/dl (11.8-15.2)
[2021-04-13] MEDS: METOPROLOL TARTRATE 25 MG TAB PO SCH ×2 (19:02→22:16)
[2021-04-13] MEDS: MULTIVITAMINS ,THERAPEUTIC TAB PO SCH (19:16)
[2021-04-14] MEDS: SODIUM CHLORIDE 0.9% 1000 ML 1,000 ML IV SCH (05:19)
[2021-04-14] MEDS: METOPROLOL TARTRATE 25 MG TAB PO SCH ×3 (05:22→21:13)
[2021-04-14] MEDS: PANTOPRAZOLE 40 MG INJ IV SCH (10:14)
[2021-04-14] MEDS: MULTIVITAMINS ,THERAPEUTIC TAB PO SCH (10:14)
[2021-04-14] MEDS: INSULIN NPH, HUMAN 100 UNIT/1 ML SUB-Q SCH ×2 (10:14→17:44)
[2021-04-14] MEDS: DOXAZOSIN 1 MG TAB PO SCH ×2 (10:14→21:12)
[2021-04-14] MEDS: LISINOPRIL 20 MG TAB PO SCH (10:14)
--- NOTE | 2021-04-14 13:21 | Progress Note ---
Assessment and Plan #Atypical chest pain resolved #Acute blood loss anemia #Supratherapeutic INR #Paroxysmal atrial fibrillation #Sick sinus syndrome status post single-chamber cardiac pacemaker #Diabetes Stress test showed fixed inferior apical defect but no significant ischemia. Serial troponins negative. Patient is chest pain free currently. We will continue antianginal therapy with metoprolol and ISMN along with statin. Hold warfarin for now. GI planning for possible endoscopic evaluation of anemia on Friday. May consider addition of aspirin pending findings. Subjective Date of service: 04/14/21 Interval history: No chest pain or other complaints Telemetryreviewed, sinus rhythm heart rate 70s, occasional ventricular pacing Objective Vital Signs Temp Pulse Resp BP Pulse Ox 04/14/21 12:00 55 L 98 04/14/21 04:11 97.4 F L 59 L 18 121/57 100 04/14/21 04:00 55 L 04/13/21 23:57 97.9 F 59 L 18 121/50 95 04/13/21 22:58 96 04/13/21 20:05 98.0 F 61 16 107/58 96 04/13/21 16:41 98.2 F 86 18 129/63 100 04/13/21 15:00 88 - Physical Examination Narrative exam: Gen-NAD, cooperative Neck-supple, no JVD CV-RRR, no murmurs Lungs-CTAB Abd-soft/nt/nd Ext-warm to touch, no pedal edema Neuro-awake, alert, and oriented; no gross focal deficits Psych-affect appropriate Left chest pacemaker site is well-healed Neuro: Positive: Weakness (Chronic left hemiparesis) - Labs and Meds CBC 04/13/21 Range/Units 15:21 Hgb 7.3 L (11.8-15.2) gm/dl Hct 23.4 L (35.5-45.6) %
--- NOTE | 2021-04-14 15:04 | Progress Note ---
Assessment and Plan Assessment and plan: -- Acute coronary syndrome Current Visit: Yes Status: Acute Chest pain work-up Lexiscan thallium stress test, shows a small to medium sized wedge-shaped, fixed defect in the inferoapical wall. This defect was mostly fixed with minimal to no significant reversibility. Left ventricular systolic ejection fraction was normal on gated SPECT study. Cardiology want to clinically monitor and decide further evaluation if needed -- A-fib Current Visit: Yes Status: Chronic On Coumadin which was stopped because of the INR being more than 3 Rate controlled, continue current cardiac medications -- Guaiac positive stools Current Visit: Yes Status: Acute GI consult -- History of CVA with residual deficit Current Visit: Yes Status: Chronic Supportive care -- Coagulopathy/supratherapeutic INR Current Visit: Yes Status: Acute Coumadin and Plavix stopped GI consult for possible EGD/colonoscopy Check INR today and vitamin K 10 subcu 1 dose if INR is high --Anemia Current Visit: Yes Status: Chronic Transfuse PRBC as necessary Possible slow blood loss secondary to coagulopathy --Cardiac pacemaker in situ Current Visit: No Status: Chronic Pacemaker functioning well --HTN (hypertension) Current Visit: No Status: Chronic Continue antihypertensives and adjust medications -- T2DM (type 2 diabetes mellitus) Current Visit: Yes Status: Chronic Accu-Chek sliding scale coverage ADA diet Insulin as needed --DVT prophylaxis Current Visit: Yes Status: Acute Coagulopathy/ Closely monitor the patient and adjust the management as needed Journeyman Glazier recommendations noted and appreciated History Interval history: I have seen and examined the patient at the bedside this morning Patient's chart and medications reviewed Patient complains of generalized weakness Vital signs noted Hospitalist Physical - Constitutional Vitals: Temp Pulse Resp BP Pulse Ox 97.4 F L 55 L 18 121/57 98 04/14/21 04:11 04/14/21 12:00 04/14/21 04:11 04/14/21 04:11 04/14/21 12:00 General appearance: Present: no acute distress, well-nourished - EENT Eyes: Present: PERRL, EOM intact - Neck Neck: Present: supple, normal ROM - Respiratory Respiratory effort: normal Respiratory: bilateral: diminished, negative: rales, rhonchi, wheezing - Cardiovascular Rhythm: regular Heart Sounds: Present: S1 & S2 - Extremities Extremities: no ischemia, No edema - Abdominal General gastrointestinal: soft, non-tender, non-distended, normal bowel sounds - Integumentary Integumentary: Present: clear, warm - Psychiatric Psychiatric: appropriate mood/affect, cooperative - Neurologic Neurologic: CNII-XII intact, moves all extremities HEART Score - HEART Score EKG: Non-specific Age: > 65 Risk factors: > 3 risk factors or hx of atherosclerotic disease Troponin: Troponin T < 0.010 ng/mL (0.00-0.029) 04/12/21 19:31 Troponin: < normal limit - Critical Actions Critical Actions: 4-6 pts:12-16.6% risk of adverse cardiac event. Should be admitted Results - Labs CBC & Chem 7: 04/14/21 15:54 04/13/21 04:58 Labs: Laboratory Last Values WBC 6.1 K/mm3 (4.5-11.0) 04/13/21 04:58 RBC 3.61 M/mm3 (3.65-5.03) L 04/13/21 04:58 Hgb 7.3 gm/dl (11.8-15.2) L 04/13/21 15:21 Hct 23.4 % (35.5-45.6) L 04/13/21 15:21 MCV 68 fl (84-94) L 04/13/21 04:58 MCH 22 pg (28-32) L 04/13/21 04:58 MCHC 32 % (32-34) 04/13/21 04:58 RDW 21.3 % (13.2-15.2) H 04/13/21 04:58 Plt Count 256 K/mm3 (140-440) 04/13/21 04:58 Lymph % (Auto) 25.6 % (13.4-35.0) 04/13/21 04:58 [place] % (Auto) 9.4 % (0.0-7.3) H 04/13/21 04:58 Eos % (Auto) 1.9 % (0.0-4.3) 04/13/21 04:58 Baso % (Auto) 0.8 % (0.0-1.8) 04/13/21 04:58 Lymph # (Auto) 1.6 K/mm3 (1.2-5.4) 04/13/21 04:58 [place] # (Auto) 0.6 K/mm3 (0.0-0.8) 04/13/21 04:58 Eos # (Auto) 0.1 K/mm3 (0.0-0.4) 04/13/21 04:58 Baso # (Auto) 0.1 K/mm3 (0.0-0.1) 04/13/21 04:58 Seg Neutrophils % 62.3 % (40.0-70.0) 04/13/21 04:58 Seg Neutrophils # 3.8 K/mm3 (1.8-7.7) 04/13/21 04:58 PT 37.3 Sec. (12.2-14.9) H 04/13/21 04:58 INR 3.75 (0.87-1.13) H 04/13/21 04:58 APTT 43.4 Sec. (24.2-36.6) H 04/13/21 04:58 Sodium 146 mmol/L (137-145) H D 04/13/21 04:58 Potassium 4.3 mmol/L (3.6-5.0) 04/13/21 04:58 Chloride 112.9 mmol/L (98-107) H 04/13/21 04:58 Carbon Dioxide 22 mmol/L (22-30) 04/13/21 04:58 Anion Gap 15 mmol/L 04/13/21 04:58 BUN 19 mg/dL (9-20) 04/13/21 04:58 Creatinine 1.0 mg/dL (0.8-1.3) 04/13/21 04:58 Estimated GFR > 60 ml/min 04/13/21 04:58 BUN/Creatinine Ratio 19 % 04/13/21 04:58 Glucose 116 mg/dL (75-100) H 04/13/21 04:58 POC Glucose 119 mg/dL (70-105) H 04/14/21 11:36 Hemoglobin A1c 5.7 % (4-6) 04/13/21 04:58 Calcium 8.4 mg/dL (8.4-10.2) 04/13/21 04:58 Total Bilirubin 0.20 mg/dL (0.1-1.2) 04/13/21 04:58 AST 9 units/L (5-40) 04/13/21 04:58 ALT 6 units/L (7-56) L 04/13/21 04:58 Alkaline Phosphatase 59 units/L (35-129) 04/13/21 04:58 Troponin T < 0.010 ng/mL (0.00-0.029) 04/12/21 19:31 Total Protein 6.3 g/dL (6.3-8.2) 04/13/21 04:58 Albumin 3.1 g/dL (3.9-5) L 04/13/21 04:58 Albumin/Globulin Ratio 1.0 % 04/13/21 04:58 Lipase 31 units/L (13-60) 04/12/21 13:58 Brenner/IV: Voiding Method Urinal Active Medications - Current Medications Current Medications: Generic Name Dose Route Start Last Admin Trade Name Freq PRN Reason Stop Dose Admin Acetaminophen 650 mg 04/12/21 23:46 Acetaminophen 325 Mg Tab PO Q4H PRN Pain MILD(1-3)/Fever >100.5/RAMIREZ Atorvastatin Calcium 40 mg 04/13/21 22:00 04/13/21 22:16 Atorvastatin 40 Mg Tab PO 40 mg QHS LAW Administration Doxazosin Mesylate 2 mg 04/13/21 10:00 04/14/21 10:14 Doxazosin 1 Mg Tab PO 2 mg BID LAW Administration Hydromorphone HCl 0.5 mg 04/12/21 23:46 Hydromorphone 1 Mg/1 Ml Inj IV Q3H PRN Pain , Severe (7-10) Sodium Chloride 1,000 mls @ 75 mls/hr 04/12/21 23:45 04/14/21 05:19 Nacl 0.9% 1000 Ml IV 75 mls/hr DIRECT LAW Administration Insulin Human NPH 12 unit 04/13/21 08:00 04/14/21 10:14 Insulin Nph, Human 100 Unit/1 Ml SUB-Q 12 unit BIDDIAB ALW Administration Isosorbide Mononitrate 30 mg 04/13/21 18:00 04/14/21 10:14 Isosorbide Mononitrate Er 30 Mg Tab PO 30 mg QDAY LAW Administration Lisinopril 20 mg 04/13/21 10:00 04/14/21 10:14 Lisinopril 20 Mg Tab PO 20 mg QDAY LAW Administration Metoclopramide HCl 10 mg 04/12/21 23:46 Metoclopramide 10 Mg/2 Ml Inj IV Q6H PRN Nausea And Vomiting Metoprolol Tartrate 25 mg 04/13/21 16:00 04/14/21 14:12 Metoprolol Tartrate 25 Mg Tab PO 25 mg Q8HR LAW Administration Morphine Sulfate 2 mg 04/12/21 23:46 Morphine 2 Mg/1 Ml Inj IV Q4H PRN Pain, Moderate (4-6) Multivitamins 1 each 04/13/21 18:00 04/14/21 10:14 Multivitamins ,Therapeutic Tab PO 1 each QDAY LAW Administration Ondansetron HCl 4 mg 04/12/21 23:46 Ondansetron 4 Mg/2 Ml Inj IV Q8H PRN Nausea And Vomiting Pantoprazole Sodium 40 mg 04/14/21 10:00 04/14/21 10:14 Pantoprazole 40 Mg Inj IV 40 mg QDAY LAW Administration Sodium Chloride 10 ml 04/12/21 23:45 04/14/21 10:14 Sodium Chloride 0.9% 10 Ml Flush Syringe IV 10 ml BID LAW Administration Sodium Chloride 10 ml 04/12/21 23:46 Sodium Chloride 0.9% 10 Ml Flush Syringe IV PRN PRN LINE FLUSH
--- NOTE | 2021-04-14 15:32 | Gastroenterology Progress Note ---
Assessment and Plan anemia - stable since admission. no signs of overt gi bleeding. h/o ulcerative esophagitis and not on ppi, initiated since admission. monitor H/H and cont anti-acid meds. consider egd/colonoscopy based on progress and once INR < 2. Subjective Date of service: 04/14/21 Principal diagnosis: anemia Interval history: no events overnight, pt denies abd pain, no n/v. tolerating some po. denies overt gi bleeding Objective - Exam Narrative Exam: gen: nad abd: soft, nt, nd lungs: ctab - Constitutional Vitals: Temp Pulse Resp BP Pulse Ox 97.4 F L 55 L 18 121/57 98 04/14/21 04:11 04/14/21 12:00 04/14/21 04:11 04/14/21 04:11 04/14/21 12:00 - Labs CBC & Chem 7: 04/13/21 15:21 04/13/21 04:58 Labs: Laboratory Results - last 24 hr 04/13/21 04/13/21 04/13/21 15: 18:51 21:04 Hgb 7.3 L Hct 23.4 L POC Glucose 145 H 140 H 04/14/21 04/14/21 08:02 11:36 Hgb Hct POC Glucose 100 119 H
[2021-04-14 16:08] LABS: Hematocrit 20.9 % (35.5-45.6); Hemoglobin 6.5 gm/dl (11.8-15.2)
[2021-04-14 16:25] LABS: INR 3.63 (0.87-1.13)
[2021-04-14] MEDS ORDERED: PHYTONADIONE 10 MG/1 ML (ADULT ONLY)*INJECTION SUB-Q ONE (19:07)
[2021-04-14] MEDS ORDERED: SODIUM CHLORIDE 0.9% 500 ML 500 ML IV ONE (19:08)
--- NOTE | 2021-04-14 19:45 | Progress Note ---
Assessment and Plan Assessment and plan: Patient's hemoglobin 6.5, type and cross transfuse 1 unit PRBC stat closely monitor H&H Patient's INR is supratherapeutic at INR 3.63, PT 36.4, PTT 42.0 Please give 10 mg subcu vitamin K, monitor coags --Anemia Current Visit: Yes Status: Chronic Status post 1 unit PRBC transfusion Hb improved from 6.5-7.9 Closely monitor H&H -- Coagulopathy/supratherapeutic INR Current Visit: Yes Status: Acute Coumadin and Plavix stopped Vitamin K subcu received 1 yesterday INR improved from 3.6 to 2.48 1 more dose subcu vitamin K today GI planning endoscopy tomorrow if INR is less than 2 -- Acute coronary syndrome Current Visit: Yes Status: Acute Chest pain work-up Lexiscan thallium stress test, shows a small to medium sized wedge-shaped, fixed defect in the inferoapical wall. This defect was mostly fixed with minimal to no significant reversibility. Left ventricular systolic ejection fraction was normal on gated SPECT study. Cardiology want to clinically monitor and decide further evaluation if needed -- A-fib Current Visit: Yes Status: Chronic On Coumadin which was stopped because of the INR being more than 3 Rate controlled, continue current cardiac medications -- Guaiac positive stools Current Visit: Yes Status: Acute GI consult -- History of CVA with residual deficit Current Visit: Yes Status: Chronic Supportive care --Cardiac pacemaker in situ Current Visit: No Status: Chronic Pacemaker functioning well --HTN (hypertension) Current Visit: No Status: Chronic Continue antihypertensives and adjust medications -- T2DM (type 2 diabetes mellitus) Current Visit: Yes Status: Chronic Accu-Chek sliding scale coverage ADA diet Insulin as needed --DVT prophylaxis Current Visit: Yes Status: Acute Coagulopathy/ Closely monitor the patient and adjust the management as needed Manager Leasing recommendations noted and appreciated 04/15/2021 Received 1 unit PRBC yesterday Hb improved from 6.5-7.9 Received 1 vitamin K subcu, INR improved from 3.6-2.4 GI planning endoscopy tomorrow if INR is less than 2 History Interval history: I have seen and examined the patient at the bedside Patient's chart and medications reviewed No new complaints except for generalized weakness Hospitalist Physical - Constitutional Vitals: Temp Pulse Resp BP Pulse Ox 97.4 F L 55 L 18 121/57 98 04/14/21 04:11 04/14/21 12:00 04/14/21 04:11 04/14/21 04:11 04/14/21 12:00 General appearance: Present: no acute distress, well-nourished - EENT Eyes: Present: PERRL, EOM intact - Neck Neck: Present: supple, normal ROM - Respiratory Respiratory effort: normal Respiratory: bilateral: diminished, negative: rales, rhonchi, wheezing - Cardiovascular Rhythm: regular Heart Sounds: Present: S1 & S2 - Extremities Extremities: no ischemia, No edema - Abdominal General gastrointestinal: soft, non-tender, non-distended, normal bowel sounds - Integumentary Integumentary: Present: clear, warm - Psychiatric Psychiatric: appropriate mood/affect, cooperative - Neurologic Neurologic: CNII-XII intact, moves all extremities HEART Score - HEART Score EKG: Non-specific Age: > 65 Risk factors: > 3 risk factors or hx of atherosclerotic disease Troponin: Troponin T < 0.010 ng/mL (0.00-0.029) 04/12/21 19:31 Troponin: < normal limit - Critical Actions Critical Actions: 4-6 pts:12-16.6% risk of adverse cardiac event. Should be admitted Results - Labs CBC & Chem 7: 04/15/21 07:07 04/13/21 04:58 Labs: Laboratory Last Values WBC 6.1 K/mm3 (4.5-11.0) 04/13/21 04:58 RBC 3.61 M/mm3 (3.65-5.03) L 04/13/21 04:58 Hgb 6.5 gm/dl (11.8-15.2) L 04/14/21 15:54 Hct 20.9 % (35.5-45.6) L 04/14/21 15:54 MCV 68 fl (84-94) L 04/13/21 04:58 MCH 22 pg (28-32) L 04/13/21 04:58 MCHC 32 % (32-34) 04/13/21 04:58 RDW 21.3 % (13.2-15.2) H 04/13/21 04:58 Plt Count 256 K/mm3 (140-440) 04/13/21 04:58 Lymph % (Auto) 25.6 % (13.4-35.0) 04/13/21 04:58 [place] % (Auto) 9.4 % (0.0-7.3) H 04/13/21 04:58 Eos % (Auto) 1.9 % (0.0-4.3) 04/13/21 04:58 Baso % (Auto) 0.8 % (0.0-1.8) 04/13/21 04:58 Lymph # (Auto) 1.6 K/mm3 (1.2-5.4) 04/13/21 04:58 [place] # (Auto) 0.6 K/mm3 (0.0-0.8) 04/13/21 04:58 Eos # (Auto) 0.1 K/mm3 (0.0-0.4) 04/13/21 04:58 Baso # (Auto) 0.1 K/mm3 (0.0-0.1) 04/13/21 04:58 Seg Neutrophils % 62.3 % (40.0-70.0) 04/13/21 04:58 Seg Neutrophils # 3.8 K/mm3 (1.8-7.7) 04/13/21 04:58 PT 36.4 Sec. (12.2-14.9) H 04/14/21 15:54 INR 3.63 (0.87-1.13) H 04/14/21 15:54 APTT 42.0 Sec. (24.2-36.6) H 04/14/21 15:54 Sodium 146 mmol/L (137-145) H D 04/13/21 04:58 Potassium 4.3 mmol/L (3.6-5.0) 04/13/21 04:58 Chloride 112.9 mmol/L (98-107) H 04/13/21 04:58 Carbon Dioxide 22 mmol/L (22-30) 04/13/21 04:58 Anion Gap 15 mmol/L 04/13/21 04:58 BUN 19 mg/dL (9-20) 04/13/21 04:58 Creatinine 1.0 mg/dL (0.8-1.3) 04/13/21 04:58 Estimated GFR > 60 ml/min 04/13/21 04:58 BUN/Creatinine Ratio 19 % 04/13/21 04:58 Glucose 116 mg/dL (75-100) H 04/13/21 04:58 POC Glucose 119 mg/dL (70-105) H 04/14/21 11:36 Hemoglobin A1c 5.7 % (4-6) 04/13/21 04:58 Calcium 8.4 mg/dL (8.4-10.2) 04/13/21 04:58 Total Bilirubin 0.20 mg/dL (0.1-1.2) 04/13/21 04:58 AST 9 units/L (5-40) 04/13/21 04:58 ALT 6 units/L (7-56) L 04/13/21 04:58 Alkaline Phosphatase 59 units/L (35-129) 04/13/21 04:58 Troponin T < 0.010 ng/mL (0.00-0.029) 04/12/21 19:31 Total Protein 6.3 g/dL (6.3-8.2) 04/13/21 04:58 Albumin 3.1 g/dL (3.9-5) L 04/13/21 04:58 Albumin/Globulin Ratio 1.0 % 04/13/21 04:58 Lipase 31 units/L (13-60) 04/12/21 13:58 Brenner/IV: Voiding Method Urinal Active Medications - Current Medications Current Medications: Generic Name Dose Route Start Last Admin Trade Name Freq PRN Reason Stop Dose Admin Acetaminophen 650 mg 04/12/21 23:46 Acetaminophen 325 Mg Tab PO Q4H PRN Pain MILD(1-3)/Fever >100.5/RAMIREZ Atorvastatin Calcium 40 mg 04/13/21 22:00 04/13/21 22:16 Atorvastatin 40 Mg Tab PO 40 mg QHS LAW Administration Doxazosin Mesylate 2 mg 04/13/21 10:00 04/14/21 10:14 Doxazosin 1 Mg Tab PO 2 mg BID LAW Administration Hydromorphone HCl 0.5 mg 04/12/21 23:46 Hydromorphone 1 Mg/1 Ml Inj IV Q3H PRN Pain , Severe (7-10) Sodium Chloride 1,000 mls @ 75 mls/hr 04/12/21 23:45 04/14/21 05:19 Nacl 0.9% 1000 Ml IV 75 mls/hr DIRECT LAW Administration Insulin Human NPH 12 unit 04/13/21 08:00 04/14/21 17:44 Insulin Nph, Human 100 Unit/1 Ml SUB-Q Not Given BIDDIAB LAW Isosorbide Mononitrate 30 mg 04/13/21 18:00 04/14/21 10:14 Isosorbide Mononitrate Er 30 Mg Tab PO 30 mg QDAY LAW Administration Lisinopril 20 mg 04/13/21 10:00 04/14/21 10:14 Lisinopril 20 Mg Tab PO 20 mg QDAY LAW Administration Metoclopramide HCl 10 mg 04/12/21 23:46 Metoclopramide 10 Mg/2 Ml Inj IV Q6H PRN Nausea And Vomiting Metoprolol Tartrate 25 mg 04/13/21 16:00 04/14/21 14:12 Metoprolol Tartrate 25 Mg Tab PO 25 mg Q8HR LWA Administration Morphine Sulfate 2 mg 04/12/21 23:46 Morphine 2 Mg/1 Ml Inj IV Q4H PRN Pain, Moderate (4-6) Multivitamins 1 each 04/13/21 18:00 04/14/21 10:14 Multivitamins ,Therapeutic Tab PO 1 each QDAY LAW Administration Ondansetron HCl 4 mg 04/12/21 23:46 Ondansetron 4 Mg/2 Ml Inj IV Q8H PRN Nausea And Vomiting Pantoprazole Sodium 40 mg 04/14/21 10:00 04/14/21 10:14 Pantoprazole 40 Mg Inj IV 40 mg QDAY LAW Administration Sodium Chloride 10 ml 04/12/21 23:45 04/14/21 10:14 Sodium Chloride 0.9% 10 Ml Flush Syringe IV 10 ml BID LWA Administration Sodium Chloride 10 ml 04/12/21 23:46 Sodium Chloride 0.9% 10 Ml Flush Syringe IV PRN PRN LINE FLUSH
[2021-04-15] MEDS: METOPROLOL TARTRATE 25 MG TAB PO SCH ×3 (05:36→22:40)
[2021-04-15 07:46] LABS: Basophils % (Auto) 0.5 % (0.0-1.8); Eosinophils # (Auto) 0.4 K/mm3 (0.0-0.4); Eosinophils % (Auto) 3.9 % (0.0-4.3); Hematocrit 24.4 % (35.5-45.6); Hemoglobin 7.9 gm/dl (11.8-15.2); Lymphocytes # (Auto) 1.8 K/mm3 (1.2-5.4); Lymphocytes % (Auto) 20.3 % (13.4-35.0); Mean Corpuscular HGB Conc 32 % (32-34); Mean Corpuscular Volume 71 fl (84-94); Monocytes # (Auto) 0.8 K/mm3 (0.0-0.8); Monocytes % (Auto) 9.1 % (0.0-7.3); Platelet Count 236 K/mm3 (140-440); Red Blood Count 3.41 M/mm3 (3.65-5.03)
[2021-04-15 07:52] LABS: Red Cell Distribution Width 23.6 % (13.2-15.2)
[2021-04-15 07:55] LABS: INR 2.48 (0.87-1.13); Partial Thromboplastin Time 34.9 Sec. (24.2-36.6)
[2021-04-15] MEDS ORDERED: POLYETHYLENE GLYCOL/ELECT SOLN 4000 ML PO ONE (09:51)
[2021-04-15] MEDS: MULTIVITAMINS ,THERAPEUTIC TAB PO SCH (10:21)
[2021-04-15] MEDS: DOXAZOSIN 1 MG TAB PO SCH ×2 (10:21→22:40)
[2021-04-15] MEDS: PANTOPRAZOLE 40 MG INJ IV SCH (10:22)
[2021-04-15] MEDS: LISINOPRIL 20 MG TAB PO SCH (10:22)
[2021-04-15] MEDS: SODIUM CHLORIDE 0.9% 1000 ML 1,000 ML IV SCH (10:27)
[2021-04-15] MEDS: INSULIN NPH, HUMAN 100 UNIT/1 ML SUB-Q SCH ×2 (10:28→17:13)
--- NOTE | 2021-04-15 12:08 | Gastroenterology Progress Note ---
Assessment and Plan acute on chronic anemia - no overt gi bleeding, given anticoagulation needs, will plan egd/colonoscopy tomorrow (if INR ~2 or less) to evaluate for gi source of anemia/rule out high risk bleeding lesions. prep orders placed, okay for clears today and npo at midnight. Subjective Date of service: 04/15/21 Principal diagnosis: anemia Interval history: pt with drop in H/H yesterday, s/p 1 unit of blood with appropriate response to transfusion no new gi complaints. denies overt gi bleeding, confirmed with pt's nurse Objective - Exam Narrative Exam: gen: nad abd: soft, nt, nd lungs: ctab - Constitutional Vitals: Temp Pulse Resp BP Pulse Ox 98.4 F 55 L 16 121/54 100 04/15/21 05:19 04/15/21 05:19 04/15/21 05:19 04/15/21 05:19 04/15/21 05:19 - Labs CBC & Chem 7: 04/15/21 07:07 04/13/21 04:58 Labs: Laboratory Results - last 24 hr 04/14/21 04/14/21 04/14/21 15:54 15:54 19:20 WBC RBC Hgb 6.5 L Hct 20.9 L MCV MCH MCHC RDW Plt Count Lymph % (Auto) [place] % (Auto) Eos % (Auto) Baso % (Auto) Lymph # (Auto) [place] # (Auto) Eos # (Auto) Baso # (Auto) Seg Neutrophils % Seg Neutrophils # PT 36.4 H INR 3.63 H APTT 42.0 H POC Glucose Blood Type O POSITIVE Antibody Screen Negative Crossmatch See Detail 04/14/21 04/15/21 04/15/21 20:52 07:07 07:28 WBC 9.0 RBC 3.41 L Hgb 7.9 L Hct 24.4 L MCV 71 L MCH 23 L MCHC 32 RDW 23.6 H Plt Count 236 Lymph % (Auto) 20.3 [place] % (Auto) 9.1 H Eos % (Auto) 3.9 Baso % (Auto) 0.5 Lymph # (Auto) 1.8 [place] # (Auto) 0.8 Eos # (Auto) 0.4 Baso # (Auto) 0.0 Seg Neutrophils % 66.2 Seg Neutrophils # 6.0 PT 27.3 H INR 2.48 H APTT 34.9 POC Glucose 153 H Blood Type Antibody Screen Crossmatch 04/15/21 04/15/21 07:54 11:37 WBC RBC Hgb Hct MCV MCH MCHC RDW Plt Count Lymph % (Auto) [place] % (Auto) Eos % (Auto) Baso % (Auto) Lymph # (Auto) [place] # (Auto) Eos # (Auto) Baso # (Auto) Seg Neutrophils % Seg Neutrophils # PT INR APTT POC Glucose 111 H 131 H Blood Type Antibody Screen Crossmatch
[2021-04-15] MEDS ORDERED: PHYTONADIONE 10 MG/1 ML (ADULT ONLY)*INJECTION SUB-Q ONE (12:53)
--- NOTE | 2021-04-15 17:09 | Progress Note ---
Assessment and Plan #Atypical chest pain resolved #Acute blood loss anemiarequiring transfusion #Supratherapeutic INR status post vitamin K #Paroxysmal atrial fibrillation #Sick sinus syndrome status post single-chamber cardiac pacemaker #Diabetes Stress test showed fixed inferior apical defect but no significant ischemia. Serial troponins negative. Continue antianginal therapy with metoprolol and ISMN along with statin. GI planning for possible endoscopic evaluation of anemia on Friday if INR < 2. May consider addition of aspirin pending findings. Subjective Date of service: 04/15/21 Principal diagnosis: anemia Interval history: No chest pain or other complaints. Given vitamin K today and INR now therapeutic. Also received blood transfusion. Telemetryreviewed, sinus rhythm with intermittent ventricular pacing Objective Vital Signs Temp Pulse Pulse Resp BP Pulse Ox 04/15/21 14:00 55 L 55 L 97 04/15/21 05:19 98.4 F 55 L 16 121/54 100 04/15/21 02:16 98.2 F 55 L 18 117/58 97 04/15/21 02:09 55 L 117/58 100 04/15/21 01:37 98.2 F 55 L 18 113/57 100 04/15/21 01:07 98.0 F 68 18 110/57 93 04/15/21 00:00 60 04/14/21 23:07 97.8 F 57 L 18 105/60 99 04/14/21 22:37 98.0 F 55 L 18 100/54 100 04/14/21 22:22 98.0 F 68 18 106/57 94 04/14/21 22:07 97.9 F 78 18 105/56 97 04/14/21 22:00 98 04/14/21 20:03 98.2 F 88 20 94/52 99 - Physical Examination Narrative exam: Gen-NAD, cooperative, resting comfortably in bed Neck-supple, no JVD CV-RRR, no murmurs Lungs-CTAB Abd-soft/nt/nd Ext-warm to touch, no pedal edema Neuro-awake, alert, and oriented; no gross focal deficits Psych-affect appropriate Left chest pacemaker site is well-healed - Labs and Meds Coagulation 04/15/21 Range/Units 07:28 PT 27.3 H (12.2-14.9) Sec. INR 2.48 H (0.87-1.13) APTT 34.9 (24.2-36.6) Sec. CBC 04/15/21 Range/Units 07:07 WBC 9.0 (4.5-11.0) K/mm3 RBC 3.41 L (3.65-5.03) M/mm3 Hgb 7.9 L (11.8-15.2) gm/dl Hct 24.4 L (35.5-45.6) % Plt Count 236 (140-440) K/mm3 Lymph # (Auto) 1.8 (1.2-5.4) K/mm3 [place] # (Auto) 0.8 (0.0-0.8) K/mm3 Eos # (Auto) 0.4 (0.0-0.4) K/mm3 Baso # (Auto) 0.0 (0.0-0.1) K/mm3
[2021-04-16] MEDS: SODIUM CHLORIDE 0.9% 1000 ML 1,000 ML IV SCH ×2 (05:06→18:54)
[2021-04-16] MEDS: METOPROLOL TARTRATE 25 MG TAB PO SCH ×3 (05:08→21:59)
[2021-04-16 06:25] LABS: INR 1.27 (0.87-1.13)
[2021-04-16 06:30] LABS: Basophils % (Auto) 0.4 % (0.0-1.8); Eosinophils # (Auto) 0.3 K/mm3 (0.0-0.4); Eosinophils % (Auto) 2.8 % (0.0-4.3); Hematocrit 25.4 % (35.5-45.6); Hemoglobin 7.9 gm/dl (11.8-15.2); Lymphocytes # (Auto) 2.1 K/mm3 (1.2-5.4); Lymphocytes % (Auto) 23.7 % (13.4-35.0); Mean Corpuscular HGB Conc 31 % (32-34); Mean Corpuscular Volume 72 fl (84-94); Monocytes # (Auto) 0.7 K/mm3 (0.0-0.8); Monocytes % (Auto) 8.2 % (0.0-7.3); Platelet Count 240 K/mm3 (140-440); Red Blood Count 3.54 M/mm3 (3.65-5.03)
[2021-04-16 06:42] LABS: Red Cell Distribution Width 24.1 % (13.2-15.2)
[2021-04-16] MEDS: INSULIN NPH, HUMAN 100 UNIT/1 ML SUB-Q SCH ×2 (08:06→18:45)
[2021-04-16] MEDS ORDERED: hydrALAZINE 20 MG/1 ML INJ IV NR (09:30)
[2021-04-16] MEDS ORDERED: hydrALAZINE 20 MG/1 ML INJ IV PRN (10:00)
[2021-04-16] MEDS: DOXAZOSIN 1 MG TAB PO SCH ×2 (10:21→21:59)
[2021-04-16] MEDS: PANTOPRAZOLE 40 MG INJ IV SCH (10:21)
[2021-04-16] MEDS: LISINOPRIL 20 MG TAB PO SCH (10:22)
[2021-04-16] MEDS: MULTIVITAMINS ,THERAPEUTIC TAB PO SCH (10:22)
--- NOTE | 2021-04-16 13:37 | Progress Note ---
Assessment and Plan - Patient Problems (1) Chest pain Current Visit: Yes Status: Acute Plan to address problem: Patient presented with atypical chest pain, ECG showed left ventricle hypertrophy with repolarization abnormalities of LVH. Thallium stress test is abnormal with evidence of prior infarct in the inferior apical wall. There is minimal degree of reversibility. We will optimize guideline directed medical therapy for coronary artery disease. He is awaiting endoscopic GI evaluation for persistent anemia. Subjective Date of service: 04/16/21 Principal diagnosis: anemia Interval history: Patient is comfortable in no acute distress, no new cardiac complaints. He is awaiting GI endoscopy for further evaluation of his persistent anemia. Objective Vital Signs Temp Pulse Pulse Resp BP BP Pulse Ox 04/16/21 13:22 102 H 128/78 04/16/21 11:35 98.9 F 108 H 18 135/69 100 04/16/21 10:20 81 156/70 04/16/21 10:00 60 17 96 04/16/21 07:36 98.1 F 66 18 169/76 97 04/16/21 04:21 98.0 F 57 L 16 182/76 98 04/16/21 01:43 96 04/16/21 00:59 73 162/74 04/15/21 23:00 53 L 04/15/21 20:16 97.9 F 60 16 103/56 96 04/15/21 15:44 98.2 F 63 18 103/50 100 04/15/21 14:00 55 L 55 L 97 - Physical Examination General: No Apparent Distress HEENT: Positive: PERRL Neck: Positive: neck supple Cardiac: Positive: Reg Rate and Rhythm Lungs: Positive: Decreased Breath Sounds Neuro: Positive: Weakness (Chronic left hemiparesis) Abdomen: Positive: Soft Skin: Positive: Clear Extremities: Absent: edema - Labs and Meds Coagulation 04/16/21 Range/Units 04:38 PT 16.5 H (12.2-14.9) Sec. INR 1.27 H (0.87-1.13) CBC 04/16/21 Range/Units 04:38 WBC 9.1 (4.5-11.0) K/mm3 RBC 3.54 L (3.65-5.03) M/mm3 Hgb 7.9 L (11.8-15.2) gm/dl Hct 25.4 L (35.5-45.6) % Plt Count 240 (140-440) K/mm3 Lymph # (Auto) 2.1 (1.2-5.4) K/mm3 [place] # (Auto) 0.7 (0.0-0.8) K/mm3 Eos # (Auto) 0.3 (0.0-0.4) K/mm3 Baso # (Auto) 0.0 (0.0-0.1) K/mm3 - Imaging and Cardiology EKG: report reviewed (Sinus rhythm no acute ST-T wave changes)
--- NOTE | 2021-04-16 18:54 | Gastroenterology Progress Note ---
Assessment and Plan Anemia - stable H/H, egd/colonoscopy planned however pt did not drink prep and did not want to proceed with procedures when discussed this morning. cont ppi for h/o severe esophagitis; will sign off, please call as needed or change in clinical course. Subjective Date of service: 04/16/21 Principal diagnosis: anemia Interval history: pt did not drink prep overnight and did not want to proceed with endoscopic work-up. no reported bleeding episodes or new gi complaints Objective - Constitutional Vitals: Temp Pulse Resp BP Pulse Ox 98.1 F 79 18 139/53 98 04/16/21 15:33 04/16/21 15:33 04/16/21 15:33 04/16/21 15:33 04/16/21 15:33 General appearance: no acute distress - Cardiovascular Rhythm: regular Heart Sounds: Present: S1 & S2 - Gastrointestinal General gastrointestinal: Present: soft, non-tender - Labs CBC & Chem 7: 04/16/21 04:38 04/13/21 04:58 Labs: Laboratory Results - last 24 hr 04/15/21 04/16/21 04/16/21 21:09 04:38 04:38 WBC 9.1 RBC 3.54 L Hgb 7.9 L Hct 25.4 L MCV 72 L MCH 22 L MCHC 31 L RDW 24.1 H Plt Count 240 Lymph % (Auto) 23.7 [place] % (Auto) 8.2 H Eos % (Auto) 2.8 Baso % (Auto) 0.4 Lymph # (Auto) 2.1 [place] # (Auto) 0.7 Eos # (Auto) 0.3 Baso # (Auto) 0.0 Seg Neutrophils % 64.9 Seg Neutrophils # 5.9 PT 16.5 H INR 1.27 H POC Glucose 145 H 04/16/21 04/16/21 04/16/21 07:22 11:36 15:31 WBC RBC Hgb Hct MCV MCH MCHC RDW Plt Count Lymph % (Auto) [place] % (Auto) Eos % (Auto) Baso % (Auto) Lymph # (Auto) [place] # (Auto) Eos # (Auto) Baso # (Auto) Seg Neutrophils % Seg Neutrophils # PT INR POC Glucose 114 H 131 H 111 H
--- NOTE | 2021-04-16 20:24 | Progress Note ---
Assessment and Plan Assessment and plan: --Anemia Current Visit: Yes Status: Chronic Status post 1 unit PRBC transfusion Hb improved from 6.5-7.9 Closely monitor H&H -- Coagulopathy/supratherapeutic INR Current Visit: Yes Status: Acute Coumadin and Plavix stopped 10 2 doses of Vitamin K subcu received INR improved from 3.6 to 2.48-1.27 Patient is ready for endoscopy However patient refused GoLYTELY and poor preparation of bowel GI answered endoscopy today, may reschedule for tomorrow if proper bowel preparation is achieved -- Acute coronary syndrome Current Visit: Yes Status: Acute Chest pain work-up Lexiscan thallium stress test, shows a small to medium sized wedge-shaped, fixed defect in the inferoapical wall. This defect was mostly fixed with minimal to no significant reversibility. Left ventricular systolic ejection fraction was normal on gated SPECT study. Cardiology want to clinically monitor and decide further evaluation if needed -- A-fib/rate controlled Current Visit: Yes Status: Chronic Coumadin is on hold as INR was more than 3 And patient is scheduled for endoscopy Recommend newer anticoagulants like Eliquis Rate controlled, continue current cardiac medications -- Guaiac positive stools Current Visit: Yes Status: Acute GI following, possible endoscopy tomorrow -- History of CVA with residual deficit Current Visit: Yes Status: Chronic Supportive care --Cardiac pacemaker in situ Current Visit: No Status: Chronic Pacemaker functioning well --HTN (hypertension) Current Visit: No Status: Chronic Continue antihypertensives and adjust medications -- T2DM (type 2 diabetes mellitus) Current Visit: Yes Status: Chronic Accu-Chek sliding scale coverage ADA diet Insulin as needed --DVT prophylaxis Current Visit: Yes Status: Acute Coagulopathy/ Closely monitor the patient and adjust the management as needed Bean Roaster recommendations noted and appreciated 04/15/2021 Received 1 unit PRBC yesterday Hb improved from 6.5-7.9 Received 1 vitamin K subcu, INR improved from 3.6-2.4 GI planning endoscopy tomorrow if INR is less than 2 04/16/2021; Endoscopy canceled today as patient did not have bowel preparation Patient refused GoLYTELY Melanie scheduled for tomorrow Follow cardiology recommendations Disposition follow clinically and discharge when medically stable And cleared by the consultants, History Interval history: I have seen and examined the patient at the bedside Patient is scheduled for endoscopy today However did not take GoLYTELY. Poor bowel preparation No new episodes of bleeding Vital signs noted Hospitalist Physical - Constitutional Vitals: Temp Pulse Resp BP Pulse Ox 97.9 F 76 19 131/57 99 04/16/21 19:12 04/16/21 19:12 04/16/21 19:12 04/16/21 19:12 04/16/21 19:12 General appearance: Present: no acute distress, well-nourished - EENT Eyes: Present: PERRL, EOM intact - Neck Neck: Present: supple, normal ROM - Respiratory Respiratory effort: normal Respiratory: bilateral: diminished, negative: rales, rhonchi, wheezing - Cardiovascular Rhythm: regular Heart Sounds: Present: S1 & S2 - Extremities Extremities: no ischemia, No edema - Abdominal General gastrointestinal: soft, non-tender, non-distended - Integumentary Integumentary: Present: clear, warm - Psychiatric Psychiatric: appropriate mood/affect, cooperative - Neurologic Neurologic: CNII-XII intact, moves all extremities HEART Score - HEART Score EKG: Non-specific Age: > 65 Risk factors: > 3 risk factors or hx of atherosclerotic disease Troponin: Troponin T < 0.010 ng/mL (0.00-0.029) 04/12/21 19:31 Troponin: < normal limit - Critical Actions Critical Actions: 4-6 pts:12-16.6% risk of adverse cardiac event. Should be admitted Results - Labs CBC & Chem 7: 04/16/21 04:38 04/13/21 04:58 Labs: Laboratory Last Values WBC 9.1 K/mm3 (4.5-11.0) 04/16/21 04:38 RBC 3.54 M/mm3 (3.65-5.03) L 04/16/21 04:38 Hgb 7.9 gm/dl (11.8-15.2) L 04/16/21 04:38 Hct 25.4 % (35.5-45.6) L 04/16/21 04:38 MCV 72 fl (84-94) L 04/16/21 04:38 MCH 22 pg (28-32) L 04/16/21 04:38 MCHC 31 % (32-34) L 04/16/21 04:38 RDW 24.1 % (13.2-15.2) H 04/16/21 04:38 Plt Count 240 K/mm3 (140-440) 04/16/21 04:38 Lymph % (Auto) 23.7 % (13.4-35.0) 04/16/21 04:38 [place] % (Auto) 8.2 % (0.0-7.3) H 04/16/21 04:38 Eos % (Auto) 2.8 % (0.0-4.3) 04/16/21 04:38 Baso % (Auto) 0.4 % (0.0-1.8) 04/16/21 04:38 Lymph # (Auto) 2.1 K/mm3 (1.2-5.4) 04/16/21 04:38 [place] # (Auto) 0.7 K/mm3 (0.0-0.8) 04/16/21 04:38 Eos # (Auto) 0.3 K/mm3 (0.0-0.4) 04/16/21 04:38 Baso # (Auto) 0.0 K/mm3 (0.0-0.1) 04/16/21 04:38 Seg Neutrophils % 64.9 % (40.0-70.0) 04/16/21 04:38 Seg Neutrophils # 5.9 K/mm3 (1.8-7.7) 04/16/21 04:38 PT 16.5 Sec. (12.2-14.9) H 04/16/21 04:38 INR 1.27 (0.87-1.13) H 04/16/21 04:38 APTT 34.9 Sec. (24.2-36.6) 04/15/21 07:28 Sodium 146 mmol/L (137-145) H D 04/13/21 04:58 Potassium 4.3 mmol/L (3.6-5.0) 04/13/21 04:58 Chloride 112.9 mmol/L (98-107) H 04/13/21 04:58 Carbon Dioxide 22 mmol/L (22-30) 04/13/21 04:58 Anion Gap 15 mmol/L 04/13/21 04:58 BUN 19 mg/dL (9-20) 04/13/21 04:58 Creatinine 1.0 mg/dL (0.8-1.3) 04/13/21 04:58 Estimated GFR > 60 ml/min 04/13/21 04:58 BUN/Creatinine Ratio 19 % 04/13/21 04:58 Glucose 116 mg/dL (75-100) H 04/13/21 04:58 POC Glucose 111 mg/dL (70-105) H 04/16/21 15:31 Hemoglobin A1c 5.7 % (4-6) 04/13/21 04:58 Calcium 8.4 mg/dL (8.4-10.2) 04/13/21 04:58 Total Bilirubin 0.20 mg/dL (0.1-1.2) 04/13/21 04:58 AST 9 units/L (5-40) 04/13/21 04:58 ALT 6 units/L (7-56) L 04/13/21 04:58 Alkaline Phosphatase 59 units/L (35-129) 04/13/21 04:58 Troponin T < 0.010 ng/mL (0.00-0.029) 04/12/21 19:31 Total Protein 6.3 g/dL (6.3-8.2) 04/13/21 04:58 Albumin 3.1 g/dL (3.9-5) L 04/13/21 04:58 Albumin/Globulin Ratio 1.0 % 04/13/21 04:58 Lipase 31 units/L (13-60) 04/12/21 13:58 Blood Type O POSITIVE 04/14/21 19:20 Antibody Screen Negative 04/14/21 19:20 Crossmatch See Detail 04/14/21 19:20 Brenner/IV: Voiding Method Condom Catheter Active Medications - Current Medications Current Medications: Generic Name Dose Route Start Last Admin Trade Name Freq PRN Reason Stop Dose Admin Acetaminophen 650 mg 04/12/21 23:46 Acetaminophen 325 Mg Tab PO Q4H PRN Pain MILD(1-3)/Fever >100.5/RAMIREZ Atorvastatin Calcium 40 mg 04/13/21 22:00 04/15/21 22:40 Atorvastatin 40 Mg Tab PO Not Given QHS LAW Doxazosin Mesylate 2 mg 04/13/21 10:00 04/16/21 10:21 Doxazosin 1 Mg Tab PO 2 mg BID LAW Administration Hydralazine HCl 10 mg 04/16/21 10:00 Hydralazine 20 Mg/1 Ml Inj IV Q4HR PRN Hypertension Hydromorphone HCl 0.5 mg 04/12/21 23:46 Hydromorphone 1 Mg/1 Ml Inj IV Q3H PRN Pain , Severe (7-10) Sodium Chloride 1,000 mls @ 75 mls/hr 04/12/21 23:45 04/16/21 18:54 Nacl 0.9% 1000 Ml IV 75 mls/hr DIRECT LAW Administration Insulin Human NPH 12 unit 04/13/21 08:00 04/16/21 18:45 Insulin Nph, Human 100 Unit/1 Ml SUB-Q Not Given BIDDIAB LAW Isosorbide Mononitrate 30 mg 04/13/21 18:00 04/16/21 10:21 Isosorbide Mononitrate Er 30 Mg Tab PO 30 mg QDAY LAW Administration Lisinopril 20 mg 04/13/21 10:00 04/16/21 10:22 Lisinopril 20 Mg Tab PO 20 mg QDAY LAW Administration Metoclopramide HCl 10 mg 04/12/21 23:46 Metoclopramide 10 Mg/2 Ml Inj IV Q6H PRN Nausea And Vomiting Metoprolol Tartrate 25 mg 04/13/21 16:00 04/16/21 13:22 Metoprolol Tartrate 25 Mg Tab PO 25 mg Q8HR LAW Administration Morphine Sulfate 2 mg 04/12/21 23:46 Morphine 2 Mg/1 Ml Inj IV Q4H PRN Pain, Moderate (4-6) Multivitamins 1 each 04/13/21 18:00 04/16/21 10:22 Multivitamins ,Therapeutic Tab PO 1 each QDAY LAW Administration Ondansetron HCl 4 mg 04/12/21 23:46 Ondansetron 4 Mg/2 Ml Inj IV Q8H PRN Nausea And Vomiting Pantoprazole Sodium 40 mg 04/14/21 10:00 04/16/21 10:21 Pantoprazole 40 Mg Inj IV 40 mg QDAY LAW Administration Sodium Chloride 10 ml 04/12/21 23:45 04/16/21 10:22 Sodium Chloride 0.9% 10 Ml Flush Syringe IV 10 ml BID LAW Administration Sodium Chloride 10 ml 04/12/21 23:46 Sodium Chloride 0.9% 10 Ml Flush Syringe IV PRN PRN LINE FLUSH
[2021-04-17] MEDS: METOPROLOL TARTRATE 25 MG TAB PO SCH ×3 (06:17→22:28)
[2021-04-17] MEDS: INSULIN NPH, HUMAN 100 UNIT/1 ML SUB-Q SCH (09:39)
[2021-04-17] MEDS: MULTIVITAMINS ,THERAPEUTIC TAB PO SCH (09:43)
[2021-04-17] MEDS: LISINOPRIL 20 MG TAB PO SCH (09:43)
[2021-04-17] MEDS: DOXAZOSIN 1 MG TAB PO SCH ×2 (09:43→22:25)
[2021-04-17] MEDS: PANTOPRAZOLE 40 MG INJ IV SCH (09:43)
[2021-04-17 11:23] LABS: BUN/Creatinine Ratio 9; Blood Urea Nitrogen 10 mg/dL (9-20); Calcium 7.9 mg/dL (8.4-10.2); Hemolysis Index 8
[2021-04-17 11:30] LABS: Hematocrit 24.8 % (35.5-45.6); Hemoglobin 7.8 gm/dl (11.8-15.2); Mean Corpuscular HGB Conc 31 % (32-34); Mean Corpuscular Volume 74 fl (84-94); Platelet Count 224 K/mm3 (140-440); Red Blood Count 3.38 M/mm3 (3.65-5.03)
--- NOTE | 2021-04-17 13:07 | Progress Note ---
Assessment and Plan - Patient Problems (1) Chest pain Current Visit: Yes Status: Acute Plan to address problem: Atypical chest pain ECG showed left ventricle hypertrophy with repolarization abnormalities of LVH. Thallium stress test is abnormal with evidence of prior infarct in the inferior apical wall. There is minimal degree of reversibility. Continue guideline directed medical therapy for coronary artery disease. Otherwise, conservative cardiac management. Subjective Date of service: 04/17/21 Principal diagnosis: anemia Interval history: Patient has no cardiac complaints. He has declined GI endoscopy. Objective Vital Signs Temp Pulse Pulse Resp BP BP Pulse Ox 04/17/21 11:22 97.3 F L 56 L 20 110/45 100 04/17/21 09:43 96 H 04/17/21 07:49 98.1 F 55 L 18 130/66 98 04/17/21 06:17 54 L 146/61 04/17/21 03:22 98.6 F 54 L 18 146/61 97 04/17/21 02:00 54 L 04/16/21 23:00 98.4 F 55 L 18 138/64 98 04/16/21 22:00 72 18 96 04/16/21 21:59 76 131/57 04/16/21 19:12 97.9 F 76 19 131/57 99 04/16/21 15:33 98.1 F 79 18 139/53 98 04/16/21 14:00 60 04/16/21 13:22 102 H 128/78 - Physical Examination General: No Apparent Distress HEENT: Positive: PERRL Neck: Positive: neck supple Cardiac: Positive: Reg Rate and Rhythm Lungs: Positive: Decreased Breath Sounds Neuro: Positive: Weakness (Chronic left hemiparesis) - Labs and Meds CBC 04/17/21 Range/Units 10:42 WBC 8.2 (4.5-11.0) K/mm3 RBC 3.38 L (3.65-5.03) M/mm3 Hgb 7.8 L (11.8-15.2) gm/dl Hct 24.8 L (35.5-45.6) % Plt Count 224 (140-440) K/mm3 Comprehensive Metabolic Panel 04/17/21 Range/Units 10:42 Sodium 141 (137-145) mmol/L Potassium 3.9 (3.6-5.0) mmol/L Chloride 114.3 H (98-107) mmol/L Carbon Dioxide 19 L (22-30) mmol/L BUN 10 (9-20) mg/dL Creatinine 1.1 (0.8-1.3) mg/dL Glucose 146 H (75-100) mg/dL Calcium 7.9 L (8.4-10.2) mg/dL
[2021-04-17 16:17] LABS: Anisocytosis 2+; Hypochromasia 1+; Platelet Estimate Consistent w Auto; Total Cells Counted 100
--- NOTE | 2021-04-17 16:37 | Discharge Summary ---
Providers - Providers Date of Admission: 04/13/21 18:49 Date of discharge: 04/18/21 Attending physician: JOE GOLD 04/12/21 15:36 Consult to Physician [CONS] Urgent Comment: Consulting Provider: ALEJANDRA MARTELL Physician Instructions: Reason For Exam: chest pain 04/12/21 23:53 Consult to Physician [CONS] Routine Comment: Consulting Provider: ROMANA WALLACE Physician Instructions: Reason For Exam: Lower GI bleed/coagulopathy Primary care physician: EXTENSION COURSE COORDINATOR Hospitalization Condition: Stable Hospital course: The patient with hx of AF and CVA came to the hospital for chest pain/elevated BP (poor historian) but was noted to have acute on chronic anemia. He is on coumadin, plavix, and ?ASA. He is hemoccult positive, but has had no melena or hematochezia. He had an EGD here 4 years ago that showed LA Grade D esophagitis, He denies N/V/abdominal pain/rectal bleeding. patient was admitted for further evaluation and Mx. His Hb dropped as low as 6.5. Daily clinical course 04/15/2021 Received 1 unit PRBC yesterday Hb improved from 6.5-7.9 Received 1 vitamin K subcu, INR improved from 3.6-2.4 GI planning endoscopy tomorrow if INR is less than 2 04/16/2021; Endoscopy canceled today as patient did not have bowel preparation Patient refused GoLYTELY Follow cardiology recommendations Disposition follow clinically and discharge when medically stable And cleared by the consultants, 04/17/21: stable H/H, egd/colonoscopy planned however pt did not drink prep and did not want to proceed with procedures. GI recommended to cont ppi for h/o severe esophagitis;. Patient cleared by cardiology and GI for discharge, but unable to reach out to the family. Pending case management arrangement for discharge 04/18/21: Patient was discharged home withh PPI and outpt followup with GI. BP meds were adjusted and vitals stable on discharge. Disposition: HOME HEALTH CARE SERVICE Final Discharge Diagnosis (Prints w/discharge instructions): --Anemia, chronic. -- Coagulopathy/supratherapeutic INR. -- Acute chest pain, ACS ruled out, lik sarina from GERD. -- A-fib/rate controlled. -- Guaiac positive stools, outpt follow up. -- History of CVA with residual deficit. --Cardiac pacemaker in situ. --HTN (hypertension). -- T2DM (type 2 diabetes mellitus) Time spent for discharge: 34 minutes Core Measure Documentation - Palliative Care Palliative Care/ Comfort Measures: Not Applicable - Core Measures Any of the following diagnoses?: none Exam - Physical Exam Narrative exam: General appearance: Present: no acute distress, well-nourished - EENT Eyes: Present: PERRL, EOM intact - Neck Neck: Present: supple, normal ROM - Respiratory Respiratory effort: normal Respiratory: bilateral: diminished, negative: rales, rhonchi, wheezing - Cardiovascular Rhythm: regular Heart Sounds: Present: S1 & S2 - Extremities Extremities: no ischemia, No edema - Abdominal General gastrointestinal: soft, non-tender, non-distended - Integumentary Integumentary: Present: clear, warm - Psychiatric Psychiatric: appropriate mood/affect, cooperative - Neurologic Neurologic: CNII-XII intact, moves all extremities - Constitutional Vitals: Temp Pulse Resp BP Pulse Ox 97.3 F L 55 L 18 110/45 97 04/17/21 11:22 04/17/21 14:38 04/17/21 14:38 04/17/21 11:22 04/17/21 14:38 Plan Activity: advance as tolerated Weight Bearing Status: Weight Bear as Tolerated Diet: low fat, low salt Additional Instructions: f/u with Dr Martell in one week. Please f/u CBC in one week and plan for outpt colonoscopy Follow up with: AUSTIN ALLEN MD [Primary Care Provider] - 7 Days ALEJANDRA MARTELL MD [Staff Physician] - 7 Days Prescriptions: Pantoprazole [Protonix] 40 mg PO QDAY #30 tablet
[2021-04-18] MEDS: METOPROLOL TARTRATE 25 MG TAB PO SCH ×2 (05:39→14:10)
[2021-04-18] MEDS: MULTIVITAMINS ,THERAPEUTIC TAB PO SCH (10:26)
[2021-04-18] MEDS: DOXAZOSIN 1 MG TAB PO SCH (10:26)
[2021-04-18] MEDS: LISINOPRIL 20 MG TAB PO SCH (10:26)
[2021-04-18] MEDS: PANTOPRAZOLE 40 MG INJ IV SCH (10:27)
--- NOTE | 2021-04-18 16:25 | Progress Note ---
Assessment and Plan --Anemia Current Visit: Yes Status: Chronic Status post 1 unit PRBC transfusion Hb improved from 6.5-7.9 Closely monitor H&H -- Coagulopathy/supratherapeutic INR Current Visit: Yes Status: Acute Coumadin and Plavix stopped 10 2 doses of Vitamin K subcu received INR improved from 3.6 to 2.48-1.27 Patient is ready for endoscopy However patient refused GoLYTELY and poor preparation of bowel GI answered endoscopy today, may reschedule for tomorrow if proper bowel preparation is achieved -- Acute coronary syndrome Current Visit: Yes Status: Acute Chest pain work-up Lexiscan thallium stress test, shows a small to medium sized wedge-shaped, fixed defect in the inferoapical wall. This defect was mostly fixed with minimal to no significant reversibility. Left ventricular systolic ejection fraction was normal on gated SPECT study. Cardiology want to clinically monitor and decide further evaluation if needed -- A-fib/rate controlled Current Visit: Yes Status: Chronic Coumadin is on hold as INR was more than 3 And patient is scheduled for endoscopy Recommend newer anticoagulants like Eliquis Rate controlled, continue current cardiac medications -- Guaiac positive stools Current Visit: Yes Status: Acute GI following, possible endoscopy tomorrow -- History of CVA with residual deficit Current Visit: Yes Status: Chronic Supportive care --Cardiac pacemaker in situ Current Visit: No Status: Chronic Pacemaker functioning well --HTN (hypertension) Current Visit: No Status: Chronic Continue antihypertensives and adjust medications -- T2DM (type 2 diabetes mellitus) Current Visit: Yes Status: Chronic Accu-Chek sliding scale coverage ADA diet Insulin as needed --DVT prophylaxis Current Visit: Yes Status: Acute Coagulopathy/ Closely monitor the patient and adjust the management as needed Clip Loading Machine Feeder recommendations noted and appreciated 04/15/2021 Received 1 unit PRBC yesterday Hb improved from 6.5-7.9 Received 1 vitamin K subcu, INR improved from 3.6-2.4 GI planning endoscopy tomorrow if INR is less than 2 04/16/2021; Endoscopy canceled today as patient did not have bowel preparation Patient refused GoLYTELY July scheduled for tomorrow Follow cardiology recommendations Disposition follow clinically and discharge when medically stable And cleared by the consultants, 04/17/21: Patient cleared by cardiology and GI for discharge, but unable to reach out to the family. Pending case management arrangement for discharge Subjective Date of service: 04/17/21 Principal diagnosis: anemia Interval history: Patient seen and examined No acute issue overnight h/h stable vitals noted and stable Objective - Exam Narrative Exam: General appearance: Present: no acute distress, well-nourished - EENT Eyes: Present: PERRL, EOM intact - Neck Neck: Present: supple, normal ROM - Respiratory Respiratory effort: normal Respiratory: bilateral: diminished, negative: rales, rhonchi, wheezing - Cardiovascular Rhythm: regular Heart Sounds: Present: S1 & S2 - Extremities Extremities: no ischemia, No edema - Abdominal General gastrointestinal: soft, non-tender, non-distended - Integumentary Integumentary: Present: clear, warm - Psychiatric Psychiatric: appropriate mood/affect, cooperative - Neurologic Neurologic: CNII-XII intact, moves all extremities - Constitutional Vitals: Vital Signs - 12hr 04/18/21 04/18/21 04/18/21 05:39 06:19 07:45 Temperature 98.7 F Pulse Rate 77 77 61 Respiratory 18 Rate Blood Pressure 184/66 186/66 121/49 O2 Sat by Pulse 99 Oximetry - Labs CBC & Chem 7: 04/17/21 10:42 04/17/21 10:42 Labs: Abnormal lab results 04/17/21 04/17/21 04/18/21 Range/Units 16:39 21:15 07:43 POC Glucose 145 H 129 H 133 H (70-105) mg/dL 04/18/21 Range/Units 11:28 POC Glucose 130 H (70-105) mg/dL HEART Score - HEART Score EKG: Non-specific Age: > 65 Risk factors: > 3 risk factors or hx of atherosclerotic disease Troponin: Troponin T < 0.010 ng/mL (0.00-0.029) 04/12/21 19:31 Troponin: < normal limit - Critical Actions Critical Actions: 4-6 pts:12-16.6% risk of adverse cardiac event. Should be admitted
[2021-04-18 17:15] VITALS: BP 110/55
[2021-04-19] MEDS ORDERED: PANTOPRAZOLE 40 MG TAB PO SCH (07:30)
== END 2021-04-18 19:30 | disposition home health service (06) | DRG 392 ==
LOC: ED 13:02 → 4A 15:43 → OBSVTOIN 04-13 18:49
PROVIDERS: ADMIT Internal Medicine; ATTEND Internal Medicine
PROC: 30233N1 Transfusion of Nonautologous Red Blood Cells into Peripheral Vein, Percutaneous Approach (ICD-10-PCS; principal; 2021-04-14)
DX: K21.9 Gastro-esophageal reflux disease without esophagitis (principal); D68.9 Coagulation defect, unspecified; D62 Acute posthemorrhagic anemia; I69.354 Hemiplegia and hemiparesis following cerebral infarction affecting left non-dominant side; I48.92 Unspecified atrial flutter; I48.0 Paroxysmal atrial fibrillation; I49.5 Sick sinus syndrome; I10 Essential (primary) hypertension; E11.9 Type 2 diabetes mellitus without complications; M19.90 Unspecified osteoarthritis, unspecified site; Z95.810 Presence of automatic (implantable) cardiac defibrillator; Z79.4 Long term (current) use of insulin; Z79.899 Other long term (current) drug therapy; Z79.01 Long term (current) use of anticoagulants
CPT/HCPCS: 36415; 71045; 78452; 80048; 80053; 82271; 82962; 83036; 83690; 84484; 85007; 85014; 85018; 85025; 85610; 85730; 86850; 86900; 86901; 86920; 93005; 93017; G0378; A9502; C9113; J0360; J1815; J2785; J3430; J7030; J7040; P9016